=== PATIENT | female | born 1935 | race Caucasian/White ===

== ENCOUNTER 2016-08-10 07:15 | Inpatient (IN) | payer OTHER ==
[2016-07-20 12:45] VITALS: BMI 40.0
--- NOTE | 2016-07-20 13:35 | PAT Medication Instructions ---
Service Date July 20, 2016. Current Home Medication List Apixaban (Eliquis), 5 MG PO BID Calcium/Vitamin D (Caltrate 600 Plus *), 1 TAB PO BID Celecoxib (Celebrex), CAP PO BID Celecoxib (CeleBREX), 200 MG PO QAM Cholecalciferol (Vitamin D), 1,000 INTER.UNIT PO QDL Lisinopril (Zestril), 5 MG PO QAM Metoprolol Succinate (Metoprolol Succinate ER), 1 TAB PO QPM Multiple Vitamin (Multivitamins), 1 TAB PO QDL Omeprazole (Prilosec), 20 MG PO QAM Oxycodone Hcl (Oxycodone Hcl), 1 CAP PO q4-6 hours PRN for Pain Sertraline (Zoloft), 100 MG PO QAM [Levothyroxine], 100 MG PO QAM Medication Instructions For Your Scheduled Surgery Apixaban (Eliquis), 5 MG PO BID (anesthesia recommends holding three days for spinal anesthesia- please check if this is okay with necktie stitcher) Celecoxib (CeleBREX), 200 MG PO QAM (patient will check with surgeon for instructions) - Hold the following medications the morning of surgery: Multiple Vitamin (Multivitamins), 1 TAB PO QDL3 Lisinopril (Zestril), 5 MG PO QAM Cholecalciferol (Vitamin D), 1,000 INTER.UNIT PO QDL Calcium/Vitamin D (Caltrate 600 Plus *), 1 TAB PO BID - Take the following medications the morning of surgery with a sip of water: Sertraline (Zoloft), 100 MG PO QAM Levothyroxine 100 MG PO QAM Oxycodone Hcl (Oxycodone Hcl), 1 CAP PO q4-6 hours PRN for Pain (can take up to four hours prior to surgery if needed) Omeprazole (Prilosec), 20 MG PO QAM - Take the following medications as scheduled the night before surgery: Oxycodone Hcl (Oxycodone Hcl), 1 CAP PO q4-6 hours PRN for Pain Metoprolol Succinate (Metoprolol Succinate ER), 1 TAB PO QPM If you have any questions please call us at [phone] or [phone] ( Sera) or [phone]
--- NOTE | 2016-07-20 14:18 | DIAGNOSTIC IMAGING REPORT ---
CHEST 2 VIEWS ROUTINE CLINICAL HISTORY: PAT preoperative evaluation COMPARISON STUDY: 06/15/2012 FINDINGS: The bones soft tissues and hemidiaphragms are normal. The cardiomediastinal silhouette is normal. The lungs are clear. The pulmonary vasculature is normal. IMPRESSION: Negative chest. Electronically signed by: Jose Pitt M.D. 07/20/2016 2:17 PM Dictated Date/Time: 07/20/2016 2:16 PM
[2016-07-20 14:42] LABS: BASO % 0.5 %; BASO ABS # 0.03 K/uL (0-0.2); COMPLETE YES; EOS % 2.2 %; HEMATOCRIT 49.3 % (37-47); IG% 0.2 %; LYMPH ABS # 2.27 K/uL (1.2-3.4); MEAN CELL VOLUME 95.5 fL (80-100); MEAN CORPUSCULAR HEMOGLOBIN 30.4 pg (25-34); MEAN CORPUSCULAR HGB CONC 31.8 g/dl (32-36); MEAN PLATELET VOLUME 9.4 fL (7.4-10.4); MONO % 9.6 %; NEUT % 52.5 %; PLATELET COUNT 199 K/uL (130-400); RED BLOOD COUNT 5.16 M/uL (4.2-5.4); WHITE BLOOD COUNT 6.49 K/uL (4.8-10.8)
[2016-07-20 14:57] LABS: INR 1.1 (0.9-1.1); PARTIAL THROMBOPLASTIN RATIO 1.1; PROTHROMBIN TIME (PATIENT) 11.3 SECONDS (9.0-12.0)
[2016-07-20 15:01] LABS: URINE APPEARANCE CLEAR (CLEAR); URINE BILIRUBIN NEG (NEG); URINE COLOR YELLOW; URINE EPITHELIAL CELL AUTO >30 /lpf (0-5); URINE NITRITE NEG (NEG); URINE SPECIFIC GRAVITY 1.016 (1.000-1.030); UROBILINOGEN NEG (NEG); ZZUR CULT IF INDIC CLEAN CATCH NO
[2016-07-20 15:11] LABS: MANUAL MICROSCOPIC REQUIRED? NO; REVIEW REQ? NO
[2016-07-20 16:37] LABS: CALCIUM 9.4 mg/dl (8.5-10.1); CREATININE 0.85 mg/dl (0.60-1.20); POTASSIUM 4.7 mmol/L (3.5-5.1)
--- NOTE | 2016-08-06 15:49 | HISTORY & PHYSICAL EXAMINATION ---
DATE OF ADMISSION: 08/10/2016 CHIEF COMPLAINT: Left hip pain. HISTORY OF PRESENT ILLNESS: Susy is an 81-year-old female with a 1-year worsening history of left hip pain. She rates her pain at 10/10. She has pain with her daily activities. She has limited standing and walking tolerance. Pain is worse with weightbearing. The patient ambulates with a walker. She takes Celebrex. She is unable to exercise due to pain. She has failed conservative treatment and is scheduled for a left hip replacement. PAST MEDICAL HISTORY: Hypertension, AFib and anxiety. She denies heart disease, diabetes or DVT. PAST SURGICAL HISTORY: Tonsillectomy, bilateral carpal tunnel, right trigger finger, tubal ligation, right knee arthroscopy, right hip replacement, laminectomy, cataract extraction, biopsy of left breast, colonoscopy, D\T\C, lumbar fusion L3-S1, anterior cervical fusion C5-C6 and C6-C7 and left total knee replacement. SOCIAL HISTORY: The patient drinks 1 drink per week. She denies tobacco use. She lives alone in a single-story home. She is . She lives alone; however, her son lives close by. She is retired. FAMILY HISTORY: Negative for DVT. MEDICATIONS: Prilosec 20 mg daily, levothyroxine 1 daily, Celebrex 200 mg daily, lisinopril 5 mg daily, Zoloft daily, multivitamin 1 daily, calcium citrate 4 daily, glucosamine chondroitin 2 daily, vitamin D 1000 International Units daily, Eliquis 5 mg twice daily, and metoprolol 25 mg daily. ALLERGIES: None. REVIEW OF SYSTEMS: See HPI. Ten other systems reviewed, all negative. PHYSICAL EXAMINATION: VITAL SIGNS: Height 5 feet 2 inches and weight 218 pounds. BMI is 40. GENERAL: This is a well-developed and well-nourished female who is alert and oriented x3. Mood and affect are appropriate. HEENT: Normocephalic and atraumatic. Mucous membranes are moist and intact. NECK: Supple without lymphadenopathy. HEART: Irregular rate. No murmurs, rubs or gallops. LUNGS: Clear to auscultation without wheezes or rhonchi. ABDOMEN: Soft and nontender. Bowel sounds are equal and active. EXTREMITIES: No ecchymosis, redness or warmth. Thigh and calf are soft and nontender. Log roll of the hip reproduces pain in the groin. She is neurovascularly intact with +5/5 strength. X-RAY EXAMINATION: AP and lateral views show joint space narrowing and osteophyte formation. IMPRESSION: Degenerative joint disease, left hip. PLAN: The patient will be admitted for a direct anterior left total hip arthroplasty. We will plan on resuming Eliquis for DVT prophylaxis. NINA
[2016-08-10] VITALS (11 sets, daily range): BP systolic 77–176; BP diastolic 47–106; PULSE 72–132; TEMP 36.2–36.6; O2SAT 93–99; Ht 157.5 cm; Wt 98.7 kg
[~2016-08-10] VITALS: Ht 157.5 cm; Wt 98.7 kg
[~2016-08-10 07:15] MED LIST: ACETAMINOPHEN 500 MG TAB PO SCH; APIX1TAB3 PO; BUPIVACAINE 0.5 % 5 MG/1 ML PF 10ML VIAL ONE; CEFAZOLIN 2000 MG/60 ML D5W 60 ML IV SCH; CHOL100010 PO; CLB/200 PO; CLB100 PO; CLTP PO; CeleBREX 200 MG CAP PO SCH; DEXAMETHASONE 4 MG TAB PO SCH; FAMOTIDINE 20 MG TAB PO SCH; FENTANYL CITRATE INJ 50 MCG/1 ML 2 ML VIAL ONE; GABAPENTIN 300 MG CAP PO SCH; LACTATED RINGER'S 1000ML 1,000 ML IV SCH; LACTATED RINGER'S 1000ML 500 ML IV ONE; LACTATED RINGER'S 1000ML IV SCH; LISI5TAB3 PO; Levothyroxine PO; METOCLOPRAMIDE HCL 10 MG TAB PO SCH; MIDAZOLAM HCL 1 MG/ML 2ML VIAL ONE; MULTCAP42 PO; OMEP20CA9 PO; OXYC1CAP5 PO; OXYCODONE HCL 10 MG TABCR (OXYCONTIN) PO SCH; POLYMYXIN B SULFATE 100,000 UNITS in NSS 100ML IR SCH; ROPIVACAINE 5MG/ML 30 ML 150 MG, BUPIVACAINE/EPINEPHR 0.5% MPF 30 ML, KETOROLAC TROMETH... INFIL SCH; SERT-234 PO; TPRSR25 PO; VANCOMYCIN INJ 400 MG in NSS 100ML IR SCH
--- NOTE | 2016-08-10 08:30 | History & Physical Bridge Note ---
H&P Re-Evaluation Bridge Note: I have examined the patient, reviewed the History & Physical and in the interval since the performance of the History & Physical I have noted the following changes of clinical significance: No changes noted
[2016-08-10] MEDS ORDERED: ONDANSETRON INJ 2 MG/ML 2 ML VIAL IV PRN ×2 (09:00→11:15)
[2016-08-10] MEDS ORDERED: ATROPINE SULFATE 0.1 MG/ML 5ML SYR IV PRN (09:00)
[2016-08-10] MEDS ORDERED: LABETALOL HCL IV 5 MG/ML 20ML IV PRN (09:00)
[2016-08-10] MEDS ORDERED: KETOROLAC TROMETHAMINE 30 MG/ML VIAL IV. PRN (09:00)
[2016-08-10] MEDS ORDERED: ONDANSETRON INJ 2 MG/ML 2 ML VIAL ONE (09:10)
[2016-08-10] MEDS ORDERED: PROPOFOL IV EMULSION 10 MG/ML 20 ML VIAL IV ONE (09:10)
[2016-08-10] MEDS ORDERED: ROCURONIUM BROMIDE 10 MG/ML 5 ML VIAL ONE (09:10)
[2016-08-10] MEDS ORDERED: POVIDONE-IODINE OP SOLN 30 ML BTL ONE (09:11)
[2016-08-10] MEDS ORDERED: ORTHO JOINT ANESTHETIC ONE (09:11)
[2016-08-10] MEDS ORDERED: BACITRACIN 50000 UNIT VIAL ONE (09:11)
[2016-08-10] MEDS: TRANEXAMIC ACID INJ 1,000 MG in SODIUM CHLORIDE 0.9% 100ML 100 ML IV SCH ×2 (09:28→13:52)
[2016-08-10] MEDS ORDERED: FENTANYL CITRATE INJ 50 MCG/1 ML 2 ML VIAL ONE ×2 (09:57→10:21)
--- NOTE | 2016-08-10 11:02 | [facility] Post Operative Brief Note ---
Immediate Operative Summary Operative Date August 10, 2016. Pre-Operative Diagnosis Left hip degenerative joint disease Post-Operative Diagnosis Left hip degenerative joint disease MORBID OBESITY BMI 40 Procedure(s) Performed Left total hip arthroplasty, direct anterior approach Surgeon Dr. Moo Romero Dairy Husbandry Teacher Surgeon(s) Pepper Holcomb PA-C Estimated Blood Loss 75 ML Findings DJD Specimens A. Left femoral head Complication(s) None Disposition Recovery Room / PACU
--- NOTE | 2016-08-10 11:09 | DIAGNOSTIC IMAGING REPORT ---
LEFT HIP UNILATERAL 1 VIEW CLINICAL HISTORY: Hip arthroplasty COMPARISON STUDY: No previous studies for comparison. FINDINGS: There are postsurgical changes of a total left hip arthroplasty. There is no dislocation. No fractures are visualized. A single fluoroscopic spot image was acquired. 13 seconds of fluoroscopic time was utilized. IMPRESSION: Postsurgical changes of a total left hip arthroplasty. Electronically signed by: Meng Daniels M.D. 08/10/2016 11:07 AM Dictated Date/Time: 08/10/2016 11:07 AM
[2016-08-10] MEDS ORDERED: SOD PHOSPHATE/SOD BIPHOSPHATE ENEMA 132 ML BTL PR PRN (11:15)
[2016-08-10] MEDS ORDERED: DiphenhydrAMINE HCL 50 MG/ML VIAL IV PRN (11:15)
[2016-08-10] MEDS ORDERED: MoRPHine SULFATE 2 MG/ML CARP IV PRN (11:15)
[2016-08-10] MEDS ORDERED: MAGNESIUM HYDROXIDE SUSP 30 ML UDC PO PRN (11:15)
[2016-08-10] MEDS ORDERED: METOCLOPRAMIDE HCL INJ 5 MG/ML 2 ML VIAL IV PRN (11:15)
[2016-08-10] MEDS ORDERED: ALUMINUM/MAGNESIUM/SIMETH (MAALOX MAX) 30 ML UDC PO PRN (11:15)
[2016-08-10] MEDS ORDERED: OXYCODONE HCL IR 5 MG TAB (IMMEDIATE RELEASE) PO PRN (11:15)
[2016-08-10] MEDS ORDERED: BISACODYL 10 MG SUPP PR PRN (11:15)
[2016-08-10] MEDS ORDERED: ZOLPIDEM TARTRATE 5 MG TAB PO PRN (11:15)
[2016-08-10] MEDS ORDERED: HYDROmorphone INJ 1 MG/ML SYR ONE (11:42)
[2016-08-10] MEDS: HYDROmorphone INJ 2 MG/ML SYR/VIAL IV PRN ×4 (11:46→12:01)
--- NOTE | 2016-08-10 12:11 | Anesthesiology Progress Note ---
Anesthesia Post Op Note Date & Time August 10, 2016 at 12:11 Vital Signs Pain Intensity: 5 Vital Signs Past 12 Hours Date Time Temp Pulse Resp B/P Pulse Ox O2 Delivery O2 Flow Rate FiO2 08/10/16 12:03 102 14 08/10/16 12:03 100 14 100 08/10/16 12:02 117/74 08/10/16 11:58 81 21 08/10/16 11:58 83 21 100 08/10/16 11:57 128/88 08/10/16 11:53 94 14 08/10/16 11:53 76 14 100 08/10/16 11:52 90 15 08/10/16 11:52 82 15 136/87 100 08/10/16 11:47 79 14 139/99 100 08/10/16 11:47 83 14 08/10/16 11:42 94 14 08/10/16 11:42 84 14 146/95 100 08/10/16 11:37 80 14 08/10/16 11:37 77 14 151/101 100 08/10/16 11:33 147/96 08/10/16 11:32 17 08/10/16 11:32 17 08/10/16 11:32 36.2 75 22 147/96 100 Room Air 10 08/10/16 08:16 36.4 86 18 176/106 98 Room Air Notes Mental Status: alert / awake / arousable, participated in evaluation Pt Amnestic to Procedure: Yes Nausea / Vomiting: adequately controlled Pain: adequately controlled Airway Patency, RR, SpO2: stable & adequate BP & HR: stable & adequate Hydration State: stable & adequate Neuraxial Anesthesia: was administered, sensory block is resolving Anesthetic Complications: no major complications apparent
--- NOTE | 2016-08-10 14:05 | DIAGNOSTIC IMAGING REPORT ---
AP PELVIS, CROSSTABLE LATERAL LEFT HIP History: Left total hip arthroplasty. Degenerative arthritis. Postop. FINDINGS: The patient is status post a left total hip arthroplasty. The hardware is intact. No fracture or dislocation. Prior right total hip arthroplasty. A surgical drain is in place. IMPRESSION: Left total hip arthroplasty. No evidence for hardware complication. Electronically signed by: Grant Sandoval M.D. 08/10/2016 2:03 PM Dictated Date/Time: 08/10/2016 2:03 PM
[2016-08-10] MEDS: D5W AND 1/2NSS + 20MEQ KCL 1,000 ML IV SCH ×2 (14:31→23:21)
[2016-08-10] MEDS ORDERED: PNEUMOCOCCAL ADMINISTRATION CHARGE ONE (14:45)
[2016-08-10] MEDS ORDERED: PNEUMOCOCCAL POLYSACCHARIDES 25 MCG/0.5 ML VIAL/SYR IM. ONE (14:45)
[2016-08-10] MEDS: ACETAMINOPHEN 500 MG TAB PO SCH ×2 (15:28→21:04)
[2016-08-10] MEDS ORDERED: TRANEXAMIC ACID INJ 1,000 MG in SODIUM CHLORIDE 0.9% 100ML 100 ML IV SCH (17:30)
[2016-08-10] MEDS: CEFAZOLIN IV 2,000 MG in DEXTROSE 5% 50ML 50 ML IV SCH (17:47)
[2016-08-10] MEDS: KETOROLAC TROMETHAMINE 15 MG/ML VIAL IV. SCH ×2 (17:49→23:21)
[2016-08-10] MEDS: METOPROLOL SUCC 25MG EXT REL TAB PO SCH (21:00)
[2016-08-10] MEDS ORDERED: NON-FORMULARY MEDICATION (Apixaban (Eliquis) 5 MG) PO SCH (21:00)
[2016-08-10] MEDS ORDERED: ASPIRIN 81 MG ECTAB PO SCH (21:00)
[2016-08-10] MEDS: CALCIUM 600MG + VIT D 400 IU TAB PO SCH (21:04)
[2016-08-10] MEDS: SENNA 8.6 MG TAB PO SCH (21:04)
[2016-08-11] VITALS (7 sets, daily range): BP systolic 84–115; BP diastolic 54–76; PULSE 74–102; TEMP 36.3–36.6; O2SAT 91–98
[2016-08-11] MEDS: CEFAZOLIN IV 2,000 MG in DEXTROSE 5% 50ML 50 ML IV SCH (02:08)
[2016-08-11] MEDS: TRAMADOL HCL 50 MG TAB PO PRN ×4 (04:09→21:21)
[2016-08-11] MEDS: LEVOTHYROXINE 100 MCG TAB PO SCH (05:44)
[2016-08-11] MEDS: ACETAMINOPHEN 500 MG TAB PO SCH ×3 (05:44→21:24)
[2016-08-11] MEDS: KETOROLAC TROMETHAMINE 15 MG/ML VIAL IV. SCH ×4 (05:45→23:16)
[2016-08-11 06:20] LABS: BASO % 0.1 %; BASO ABS # 0.02 K/uL (0-0.2); COMPLETE YES; EOS % 0.6 %; IG% 0.4 %; LYMPH % 17.8 %; LYMPH ABS # 2.47 K/uL (1.2-3.4); MEAN CELL VOLUME 94.3 fL (80-100); MEAN CORPUSCULAR HGB CONC 32.9 g/dl (32-36); MEAN PLATELET VOLUME 9.4 fL (7.4-10.4); NEUT % 70.1 %; PLATELET COUNT 188 K/uL (130-400); RED BLOOD COUNT 4.35 M/uL (4.2-5.4); WHITE BLOOD COUNT 13.87 K/uL (4.8-10.8)
[2016-08-11 06:55] LABS: BUN/CREATININE RATIO 15.3 (10-20); CALCIUM 8.4 mg/dl (8.5-10.1); CREATININE 1.2 mg/dl (0.60-1.20)
[2016-08-11] MEDS ORDERED: NURSING VERBAL MED ORDER ONE (07:30)
--- NOTE | 2016-08-11 07:40 | Orthopedic Progress Note ---
Orthopedic Progress Note Date of Service August 11, 2016. Subjective Post OP Day: 1 Reports: feeling well, Denies: SOB, calf pain, chest pain, light headedness, nausea / vomiting Objective calves soft nontender, N/V intact, hip located, dressing C/D/I, A&O x3, toes mobile, hemovac drainage (225/100cc per shift) Date Time Temp Pulse Resp B/P Pulse Ox O2 Delivery O2 Flow Rate FiO2 08/11/16 04:03 36.5 82 16 100/68 95 Room Air 08/10/16 23:34 Room Air 08/10/16 23:15 36.3 94 18 102/67 96 Room Air 08/10/16 20:54 109 106/68 08/10/16 19:40 Room Air 08/10/16 19:38 99 82/56 08/10/16 19:30 36.5 90 16 77/47 93 Room Air 08/10/16 15:50 36.2 88 16 101/67 96 Nasal Cannula 2.0 08/10/16 14:43 36.6 91 20 87/54 97 Nasal Cannula 2.0 08/10/16 14:32 132 94/62 08/10/16 13:50 72 16 82/53 96 2.0 08/10/16 13:21 87 16 109/68 98 2.0 08/10/16 12:50 Nasal Cannula 2.0 08/10/16 12:50 99 Nasal Cannula 2.0 08/10/16 12:50 36.5 103 18 124/82 99 Nasal Cannula 2.0 08/10/16 12:37 110/82 08/10/16 12:34 89 12 96 08/10/16 12:34 88 12 08/10/16 12:32 106/71 08/10/16 12:29 91 18 99 08/10/16 12:29 91 18 08/10/16 12:27 123/63 08/10/16 12:24 115 15 124/71 100 08/10/16 12:24 107 15 08/10/16 12:24 36.4 75 16 124/71 100 Nasal Cannula 4 08/10/16 12:21 86/69 08/10/16 12:19 106 25 88/66 94 08/10/16 12:19 107 25 08/10/16 12:17 119/ 08/10/16 12:14 86 14 08/10/16 12:14 84 14 100 08/10/16 12:11 128/70 08/10/16 12:09 104 14 100 08/10/16 12:09 96 14 08/10/16 12:07 105/77 08/10/16 12:04 92 13 100 08/10/16 12:04 93 13 08/10/16 12:03 102 14 08/10/16 12:03 100 14 100 08/10/16 12:02 117/74 08/10/16 11:58 81 21 08/10/16 11:58 83 21 100 08/10/16 11:57 128/88 08/10/16 11:53 94 14 08/10/16 11:53 76 14 100 08/10/16 11:52 90 15 08/10/16 11:52 82 15 136/87 100 08/10/16 11:47 79 14 139/99 100 08/10/16 11:47 83 14 08/10/16 11:42 94 14 08/10/16 11:42 84 14 146/95 100 08/10/16 11:37 80 14 08/10/16 11:37 77 14 151/101 100 08/10/16 11:33 147/96 08/10/16 11:32 17 08/10/16 11:32 17 08/10/16 11:32 36.2 75 22 147/96 100 Room Air 10 08/10/16 08:16 36.4 86 18 176/106 98 Room Air Laboratory Results 24 Hours: Test 08/11/16 06:08 White Blood Count 13.87 K/uL Red Blood Count 4.35 M/uL Hemoglobin 13.5 g/dL Hematocrit 41.0 % Mean Corpuscular Volume 94.3 fL Mean Corpuscular Hemoglobin 31.0 pg Mean Corpuscular Hemoglobin Concent 32.9 g/dl Platelet Count 188 K/uL Mean Platelet Volume 9.4 fL Neutrophils (%) (Auto) 70.1 % Lymphocytes (%) (Auto) 17.8 % Monocytes (%) (Auto) 11.0 % Eosinophils (%) (Auto) 0.6 % Basophils (%) (Auto) 0.1 % Neutrophils # (Auto) 9.73 K/uL Lymphocytes # (Auto) 2.47 K/uL Monocytes # (Auto) 1.52 K/uL Eosinophils # (Auto) 0.08 K/uL Basophils # (Auto) 0.02 K/uL Assessment & Plan Assessment: POD#1 sp left PATRICIO Obesity Inhouse Planning Pain Management: Celebrex, PO Tylenol, Oxy IR DVT Prophylaxis: TEDs, SCDs, ASA, other (eliqus) Discharge Planning Discharge Planning: rehab hospital (PATIENT WOULD LIKE REFERRAL TO [facility]
[2016-08-11] MEDS: MULTIVITAMIN TAB PO SCH (08:43)
[2016-08-11] MEDS: SERTRALINE HCL 100 MG TAB PO SCH (08:43)
[2016-08-11] MEDS: PANTOprazole SOD 40 MG TAB PO SCH (08:43)
[2016-08-11] MEDS: CALCIUM 600MG + VIT D 400 IU TAB PO SCH ×2 (08:44→21:23)
[2016-08-11] MEDS ORDERED: LISINOPRIL 5 MG TAB PO SCH (09:00)
--- NOTE | 2016-08-11 09:43 | OPERATIVE REPORT ---
DATE OF OPERATION: 08/10/2016 PREOPERATIVE DIAGNOSES: 1. Degenerative arthritis, left hip. 2. Morbid obesity, BMI of 40. POSTOPERATIVE DIAGNOSES: Same. PROCEDURE: Left total hip replacement. SURGEON: Moo Romero M.D. REACTOR FUELING SUPERVISOR: Pepper Holcomb PA-C. ANESTHESIA: General. BLOOD LOSS: 75 mL. REPLACEMENT FLUIDS: 1900 mL crystalloid. DRAINS: Hemovac x2. CULTURES: None. COMPLICATIONS: None. COMPONENTS USED: Angelo \T\ Nephew Polar hip system: Acetabulum size 48, femur size 4 standard offset, femoral head 0 neck, 32 mm. NOTE: Pepper Holcomb PA-C was present and assisted throughout due to the complicated nature of this case. She helped with preparation and setup. She first assisted throughout and personally closed the fascial, subcutaneous and skin layers and applied the postoperative dressing. OPERATION AND FINDINGS: DESCRIPTION: Following satisfactory spinal, the patient was supine. The left leg was placed in the traction device and the right leg in the well leg fang. The left leg was prepared with ChloraPrep and draped sterilely. Following a surgical time-out, an anterior approach was performed. The approach was difficult. The patient had an extremely large subcutaneous fat layer and initially the interval between the sartorius and tensor muscles was difficult to identify. Eventually was identified but this added additional time and difficulty to the case. The circumflex femoral vessels were identified and ligated. An anterior capsulotomy was performed revealing the arthritic femoral neck and head. The femoral neck and head were trimmed and removed. The acetabular self-retraining retractor was placed. It had to be reset multiple times because of the patient's obesity. Acetabular preparation was completed and a 48 shell was impacted into an anatomic position and secured with a dome screw. Local anesthetic was placed and after irrigation, the polyethylene liner was placed. The femur was placed into position of external rotation, extension and adduction. Femoral canal was prepared up to a size 4. Intraoperative fluoroscopy with a 0 neck length head showed good fit and fill of the proximal canal and yarsanism of leg lengths using anatomic landmarks on fluoroscopy. The hip was dislocated. The trial component was removed. The final implant was placed and after a Betadine soak and irrigation, the capsule was closed with 1-0 Vicryl interrupted. A drain was then placed. The fascia was closed with 1-0 Vicryl running. The subcutaneous tissues were closed with 1 and 2-0 Vicryl and the skin with a running subcuticular stitch of 3-0 V-Loc. Dermabond and a dry dressing were applied. The patient was returned to her bed in stable condition. I attest to the content of the Intraoperative Record and any orders documented therein. Any exceptio ns are noted below.
[2016-08-11] MEDS: CHOLECALCIFEROL 1000 INTER.UNIT TAB PO SCH (12:12)
[2016-08-11 20:43] LABS: BASO % 0.3 %; BASO ABS # 0.04 K/uL (0-0.2); EOS % 2.2 %; HEMATOCRIT 40.7 % (37-47); IG% 0.2 %; LYMPH % 22.8 %; LYMPH ABS # 2.79 K/uL (1.2-3.4); MEAN CELL VOLUME 94.9 fL (80-100); MEAN PLATELET VOLUME 9.4 fL (7.4-10.4); MONO % 9.6 %; NEUT % 64.9 %; PLATELET COUNT 179 K/uL (130-400); RED BLOOD COUNT 4.29 M/uL (4.2-5.4); WHITE BLOOD COUNT 12.23 K/uL (4.8-10.8)
[2016-08-11 20:46] LABS: COMPLETE YES; MEAN CORPUSCULAR HGB CONC 32.7 g/dl (32-36)
[2016-08-11] MEDS: METOPROLOL SUCC 25MG EXT REL TAB PO SCH (21:00)
[2016-08-11] MEDS: SENNA 8.6 MG TAB PO SCH (21:22)
[2016-08-11] MEDS: APIXABAN 2.5 MG TAB PO SCH (21:23)
[2016-08-11 21:27] LABS: ALB/GLOB RATIO 1.1 (0.9-2); BUN/CREATININE RATIO 18.6 (10-20); CALCIUM 8.5 mg/dl (8.5-10.1); CREATININE 1.4 mg/dl (0.60-1.20); POTASSIUM 4.6 mmol/L (3.5-5.1)
[2016-08-12] VITALS (9 sets, daily range): BP systolic 86–116; BP diastolic 60–78; PULSE 89–119; TEMP 36.4–36.7; O2SAT 96
[2016-08-12] MEDS: KETOROLAC TROMETHAMINE 15 MG/ML VIAL IV. SCH (06:14)
[2016-08-12] MEDS: ACETAMINOPHEN 500 MG TAB PO SCH ×3 (06:14→21:32)
[2016-08-12] MEDS: LEVOTHYROXINE 100 MCG TAB PO SCH (06:14)
--- NOTE | 2016-08-12 07:40 | Orthopedic Progress Note ---
Orthopedic Progress Note Date of Service Aug 12, 2016. Subjective Post OP Day: 2 Reports: feeling well, Denies: chest pain, SOB, nausea / vomiting, light headedness, calf pain Objective calves soft nontender, N/V intact, dressing C/D/I, A&O x3, toes mobile Date Time Temp Pulse Resp B/P (MAP) Pulse Ox O2 Delivery O2 Flow Rate FiO2 08/12/16 07:29 96 Room Air 08/12/16 06:21 36.4 89 16 111/74 (86) 96 Room Air 08/11/16 23:20 Room Air 08/11/16 23:10 36.3 83 18 115/76 (89) 95 Room Air 08/11/16 19:13 36.6 85 17 84/54 (64) 91 Room Air 08/11/16 16:30 Room Air 08/11/16 15:07 36.5 82 16 86/57 (67) 96 Room Air 08/11/16 12:05 36.5 102 18 106/66 (79) 98 Room Air Laboratory Results 24 Hours: Test 08/11/16 20:36 White Blood Count 12.23 K/uL Red Blood Count 4.29 M/uL Hemoglobin 13.3 g/dL Hematocrit 40.7 % Mean Corpuscular Volume 94.9 fL Mean Corpuscular Hemoglobin 31.0 pg Mean Corpuscular Hemoglobin Concent 32.7 g/dl Platelet Count 179 K/uL Mean Platelet Volume 9.4 fL Neutrophils (%) (Auto) 64.9 % Lymphocytes (%) (Auto) 22.8 % Monocytes (%) (Auto) 9.6 % Eosinophils (%) (Auto) 2.2 % Basophils (%) (Auto) 0.3 % Neutrophils # (Auto) 7.92 K/uL Lymphocytes # (Auto) 2.79 K/uL Monocytes # (Auto) 1.18 K/uL Eosinophils # (Auto) 0.27 K/uL Basophils # (Auto) 0.04 K/uL Assessment & Plan Assessment: POD#2 sp left PATRICIO Obesity Inhouse Planning Pain Management: Celebrex, PO Tylenol, Oxy IR DVT Prophylaxis: TEDs, SCDs, ASA, other (eliqus) Discharge Planning Discharge Planning: rehab hospital (transfer today if accepted)
[2016-08-12] MEDS ORDERED: OXYC1CAP5 PO (07:42)
[2016-08-12] MEDS ORDERED: ACET-1138 PO (07:42)
[2016-08-12] MEDS ORDERED: ONDA8TAB6 PO (07:42)
[2016-08-12] MEDS ORDERED: SNK PO (07:42)
--- NOTE | 2016-08-12 07:44 | Discharge Instructions ---
Discharge Instructions Date of Service Aug 12, 2016. Admission Reason for Admission: Left Hip Degenerative Arthritis Discharge Discharge Diagnosis / Problem: sp left rajni, DIRECT ANTERIOR Discharge Goals Goal(s): Decrease discomfort, Improve function, Increase independence Activity Recommendations Activity Level: Assistance Required Therapies: Physical Therapy, Weight Bearing Status, Occupational Therapy . Additional Information Patient informed of condition: Yes Advance Directives: Yes DNR: No Level of Care: Acute Rehab Communicable Disease: No Prognosis: Stable Instructions / Follow-Up Instructions / Follow-Up ACTIVITY RECOMMENDATIONS: SELF CARE INSTRUCTIONS AFTER TOTAL HIP REPLACEMENT : Direct Anterior Approach Until the incision and soft tissues around your hip have healed, there is a possibility that the hip prosthesis could dislocate. A. Hip flexion ( Up & Down out of chair or steps ) may be difficult. This is normal. B. Numbness in front of the thigh is also normal for a few weeks. C. Use hand rails when walking on stairs. D. Wear low heeled shoes with non-slip soles. E. Be sure that your floors are free of things that could trip you - throw rugs , electrical cords, small objects. Avoid wet and waxed floors, especially with crutches and canes. F. Try to walk several times a day with rest periods between. G. Continue with all the exercises taught to you in the hospital. Again, make walking a part of your daily routine. SPECIAL CARE INSTRUCTIONS: VERY IMPORTANT TO READ AND REVIEW A. You may still be at risk for phlebitis and blood clots. 1. Wear surgical stockings (ADAN hose) for 2 weeks after surgery to improve circulation and reduce swelling. 2. Take Aspirin 81mg twice daily for 4 weeks or as directed by your doctor. This is your blood thinner. 3. High risk patients may be prescribed a stronger blood thinner if necessary. 4. If you are on Coumadin normally, your family doctor/mental health program manager should monitor your blood work. Expect a phone call the day of or the day after bloodwork is drawn to adjust your dosage. B. You must take antibiotics before having dental work, bladder, bowel and other surgery. Your doctor will provide you with a permanent card to carry describing precautions. C. Call [facility] if you have a fever, redness or swelling around the incision, cloudy drainage from incision, or sudden increase in pain in your hip, not relieved by your regular pain medication. D. Please call the office at if you have any concerns or questions about your operation or recovery. * YOU MAY SHOWER, NO TUB BATHS UNTIL CLEARED BY YOUR DOCTOR. - Keep an extra close eye on the top portion of your incision. Be sure to keep clean & dry. * WEAR ADAN HOSE 20 HOURS PER DAY FOR 2 WEEKS. * YOU MAY PROGRESS FROM A WALKER, TO A CANE, TO INDEPENDENT AT YOUR OWN PACE. * MOST PATIENTS WILL HAVE HOME NURSING FOR THERAPY. IF YOU DECIDE TO DO OUTPATIENT PHYSICAL THERAPY, PLEASE SCHEDULE THIS 3 TIMES PER WEEK. * DERMABOND Prineo- This is a mesh tape dressing that is covered with glue. It should remain in place until the incision is properly healed, usually 10-14 days. This dressing is designed to naturally slough off. You may trim the excess mesh tape as it peels off. Incision may be briefly wet in a shower. Dry immediately by blotting with a clean, dry towel. Do not bath or swim until instructed by your doctor. Do not scratch, rub, or pick at the dressing. Do not apply any topical ointments or lotions until dressing is completely removed and/or instructed by your doctor. There may be a small piece of suture material at one end of your incision. Do not pull or trim this. If it is bothersome or catching on clothing, you may cover it with a band-aid. FOLLOW UP VISIT: If appointment is not already scheduled: Please call [facility] to make a follow-up appointment for 2 weeks after your surgery at . Current Hospital Diet Patient's current hospital diet: Regular Diet Discharge Diet Recommended Diet: Regular Diet Procedures Procedures Performed: Left total hip arthroplasty, direct anterior approach Pending Studies Studies pending at discharge: no Medical Emergencies . Who to Call and When: Medical Emergencies: If at any time you feel your situation is an emergency, please call 911 immediately. . Non-Emergent Contact Non-Emergency issues call your: Surgeon . . "Provider Documentation" section prepared by Pepper Holcomb. . Core Measure Problem Core Measures: None [place] Drug Monitoring Program Search Results: patient reviewed within database, no issues identified
[2016-08-12] MEDS ORDERED: SODIUM CHLORIDE 0.9% 1000ML 1,000 ML IV SCH (08:30)
[2016-08-12] MEDS ORDERED: NURSING VERBAL MED ORDER ONE (08:30)
--- NOTE | 2016-08-12 08:49 | Medical Consult ---
Consultation Date of Consultation: Aug 12, 2016. Attending Physician: Moo Romero M.D. Reason for Consultation: Hypotension History of Present Illness Patient is a pleasant 81 year old female who is s/p left total hip arthroplasty , direct anterior approach. She has had labile blood pressure ranging from the 80s systolic up to 120 systolic. Hospitalist was consulted for management of hypotension. At the present time the patient currently denies any symptoms. She has started participating in rehabilitation. She denies chest pain, shortness of breath, palpitations, wheezing, orthopnea, syncope or lower extremity edema. Her other medical history includes HTN, Atrial Fibrillation and Anxiety. Past Medical/Surgical History HTN Atrial Fibrillation Anxiety Depression Hypothyroidism Social History Smoking Status: Never Smoker Smokeless Tobacco Use: No Alcohol Use: none Drug Use: none Housing Status: lives with family Allergies Coded Allergies: No Known Allergies (Verified , 07/20/16) Home Medications Reported Home Medications Medications Dose Route/Sig Max Daily Dose Days Date Category Dose Instructions Zofran (Ondansetron HCl) 8 Mg Tab 8 Mg PO Q8 PRN 08/12/16 Rx Senna Lax (Senna) 8.6 Mg Tab 17.2 Mg PO HS 14 08/12/16 Rx Tylenol Extra Strength (Acetaminophen) 500 Mg Tab 1,000 Mg PO Q8 30 08/12/16 Rx Oxycodone Hcl 5 Mg Cap 1-2 Cap PO Q4-6 HOURS PRN 08/12/16 Rx Metoprolol Succinate ER (Metoprolol Succinate) 25 Mg Tabcr 1 Tab PO QPM 07/20/16 Reported per pt med list, name of drug reads : metoprolol ER pharmacy called and verified with pharmacist that drug is a succinate Eliquis (Apixaban) 5 Mg Tab 5 Mg PO BID 07/20/16 Reported CeleBREX (Celecoxib) 200 Mg Cap 200 Mg PO QAM 07/20/16 Reported Zoloft (Sertraline HCl) 100 Mg Tab 100 Mg PO QAM 07/20/16 Reported [Levothyroxine] 100 Mg PO QAM 07/20/16 Reported pt med list reads 100 mg and patient reports this dose Prilosec (Omeprazole) 20 Mg Cap 20 Mg PO QAM 06/15/12 Reported Multivitamins (Multiple Vitamin) 1 Cap Cap 1 Tab PO QDL 06/15/12 Reported Caltrate 600 Plus * (Calcium/Vitamin D) Tab 1 Tab PO BID 09/30/09 Reported Vitamin D (Cholecalciferol) 1,000 Inter.unit Tab 1,000 Inter.unit PO QDL 06/17/09 Reported Zestril (Lisinopril) 5 Mg Tab 5 Mg PO QAM 06/17/09 Reported Current Inpatient Medications Current Inpatient Medications Medications (Trade) Dose Ordered Sig/Wendy Route Start Time Stop Time Status Last Admin Dose Admin Ketorolac Tromethamine (Toradol Inj) 15 mg Q6 IV. 08/10/16 18:00 08/12/16 17:59 08/12/16 06:14 15 MG Celecoxib (CeleBREX CAP) 200 mg QD@08 PO 08/13/16 08:00 09/12/16 07:59 Oxycodone HCl (Roxicodone Immediate Rel Tab) 1 TABLET FOR PAIN RATING... Q4H PRN PO 08/10/16 11:15 08/24/16 11:14 Morphine Sulfate (MoRPHine SULFATE INJ) 2 mg Q2HWA PRN IV 08/10/16 11:15 08/24/16 11:14 Acetaminophen (Tylenol Tab) 1,000 mg Q8 PO 08/10/16 14:00 09/09/16 13:59 08/12/16 06:14 1,000 MG Magnesium Hydroxide (Milk Of Magnesia Susp) 30 ml Q6H PRN PO 08/10/16 11:15 09/09/16 11:14 Bisacodyl (Dulcolax Supp) 10 mg DAILY PRN ME 08/10/16 11:15 09/09/16 11:14 Sodium Biphosphate/ Sodium Phosphate (Fleet Enema) 132 ml DAILY PRN ME 08/10/16 11:15 09/09/16 11:14 Senna (Senokot Tab) 17.2 mg HS PO 08/10/16 21:00 09/09/16 20:59 08/11/16 21:22 17.2 MG Diphenhydramine HCl (Benadryl Cap) 25 mg Q8H PRN PO 08/10/16 11:15 09/09/16 11:14 Diphenhydramine HCl (Benadryl Inj) 25 mg Q8H PRN IV 08/10/16 11:15 09/09/16 11:14 Al Hydrox/Mg Hydrox/Simethicone (Maalox Max Susp) 15 ml Q4H PRN PO 08/10/16 11:15 09/09/16 11:14 Zolpidem Tartrate (Ambien Tab) 5 mg HSZ PRN PO 08/10/16 11:15 09/09/16 11:14 Multivitamins (Multivitamin Tab) 1 tab QAM PO 08/11/16 09:00 09/10/16 08:59 08/11/16 08:43 1 TAB Ondansetron HCl (Zofran Inj) 4 mg Q6H PRN IV 08/10/16 11:15 09/09/16 11:14 Metoclopramide HCl (Reglan Inj) 10 mg Q6H PRN IV 08/10/16 11:15 09/09/16 11:14 Pantoprazole Sodium (Protonix Tab) 40 mg QAM PO 08/11/16 09:00 09/10/16 08:59 08/11/16 08:43 40 MG Tramadol HCl (Ultram Tab) 1 TABLET FOR PAIN RATING... Q4H PRN PO 08/10/16 11:15 09/09/16 11:14 08/11/16 21:21 100 MG Calcium/Vitamin D (Caltrate Plus Tab) 1 tab BID PO 08/10/16 21:00 09/09/16 20:59 08/11/16 21:23 1 TAB Cholecalciferol (Vitamin D Tab) 1,000 inter.unit QDL PO 08/11/16 11:00 09/10/16 10:59 08/11/16 12:12 1,000 INTER.UNIT Lisinopril (Zestril Tab) 5 mg QAM PO 08/11/16 09:00 09/10/16 08:59 08/11/16 08:44 5 MG Metoprolol Succinate (Toprol Xl Tab) 25 mg QPM PO 08/10/16 21:00 09/09/16 20:59 Sertraline HCl (Zoloft Tab) 100 mg QAM PO 08/11/16 09:00 09/10/16 08:59 08/11/16 08:43 100 MG Levothyroxine Sodium (Synthroid Tab) 100 mcg DAILYBB PO 08/11/16 06:00 09/10/16 06:59 08/12/16 06:14 100 MCG Apixaban (Eliquis Tab) 5 mg BID PO 08/11/16 21:00 09/10/16 20:59 08/11/16 21:23 5 MG Sodium Chloride 1,000 ml @ 250 mls/hr Q4H IV 08/12/16 08:30 08/12/16 12:29 Review of Systems Constitutional: No fever, No chills Eyes: No eye pain, No redness, No discharge ENT: No nasal symptoms, No sore throat, No tinnitus Respiratory: No cough, No shortness of breath, No dyspnea at rest Cardiovascular: No edema, No palpitations Abdomen: No pain, No nausea, No vomiting, No diarrhea, No constipation Musculoskeletal: + joint pain (left hip, s/p replacement) Genitourinary - Female: No urinary urgency Neurologic: + weakness, + numbness/tingling, + vertigo Hematologic / Lymphatic: + abnormal bleeding/bruising, + swollen lymph nodes, + night sweats Integumentary: + rash, + new/changing skin lesions, + color change Physical Exam Date Time Temp Pulse Resp B/P (MAP) Pulse Ox O2 Delivery O2 Flow Rate FiO2 08/12/16 07:51 96 Room Air 08/12/16 07:43 36.5 94 16 86/64 (71) 96 Room Air 08/12/16 07:29 96 Room Air 08/12/16 06:21 36.4 89 16 111/74 (86) 96 Room Air 08/11/16 23:20 Room Air 08/11/16 23:10 36.3 83 18 115/76 (89) 95 Room Air 08/11/16 19:13 36.6 85 17 84/54 (64) 91 Room Air 08/11/16 16:30 Room Air 08/11/16 15:07 36.5 82 16 86/57 (67) 96 Room Air 08/11/16 12:05 36.5 102 18 106/66 (79) 98 Room Air General Appearance: WD/WN, no apparent distress, + obese Head: normocephalic, atraumatic Eyes: normal inspection, PERRL, EOMI ENT: hearing grossly normal, pharynx normal Neck: supple, no adenopathy, no JVD Respiratory/Chest: lungs clear, no respiratory distress Cardiovascular: no gallop, no murmur, + irregularly irregular (afib rate controlled) Abdomen/GI: non tender, soft, no organomegaly Back: normal inspection, no CVA tenderness, no muscle spasm Extremities/Musculoskelatal: no calf tenderness, no pedal edema, + pertinent finding (bandaged left hip, appropriately tender with limited ROM) Neurologic/Psych: alert, normal mood/affect, oriented x 3 Skin: normal color, warm/dry, no rash Lymphatic: no adenopathy Laboratory Results Last 24 Hours Test 08/11/16 20:36 White Blood Count 12.23 K/uL Red Blood Count 4.29 M/uL Hemoglobin 13.3 g/dL Hematocrit 40.7 % Mean Corpuscular Volume 94.9 fL Mean Corpuscular Hemoglobin 31.0 pg Mean Corpuscular Hemoglobin Concent 32.7 g/dl Platelet Count 179 K/uL Mean Platelet Volume 9.4 fL Neutrophils (%) (Auto) 64.9 % Lymphocytes (%) (Auto) 22.8 % Monocytes (%) (Auto) 9.6 % Eosinophils (%) (Auto) 2.2 % Basophils (%) (Auto) 0.3 % Neutrophils # (Auto) 7.92 K/uL Lymphocytes # (Auto) 2.79 K/uL Monocytes # (Auto) 1.18 K/uL Eosinophils # (Auto) 0.27 K/uL Basophils # (Auto) 0.04 K/uL RDW Standard Deviation 49.8 fL RDW Coefficient of Variation 14.4 % Immature Granulocyte % (Auto) 0.2 % Immature Granulocyte # (Auto) 0.03 K/uL Sodium Level 137 mmol/L Potassium Level 4.6 mmol/L Chloride Level 105 mmol/L Carbon Dioxide Level 24 mmol/L Anion Gap 8.0 mmol/L Blood Urea Nitrogen 26 mg/dl Creatinine 1.40 mg/dl Est Creatinine Clear Calc Drug Dose 34.0 ml/min Estimated GFR () 40.5 Estimated GFR (Non- 34.9 BUN/Creatinine Ratio 18.6 Random Glucose 101 mg/dl Calcium Level 8.5 mg/dl Magnesium Level 2.0 mg/dl Total Bilirubin 0.5 mg/dl Aspartate Amino Transf (AST/SGOT) 29 U/L Alanine Aminotransferase (ALT/SGPT) 15 U/L Alkaline Phosphatase 74 U/L Troponin I 0.023 ng/ml Total Protein 5.6 gm/dl Albumin 2.9 gm/dl Globulin 2.7 gm/dl Albumin/Globulin Ratio 1.1 Assessment & Plan 81 year old female s/p total left hip arthroplasty. Review of labs this morning also notes ELISE; possible etiologies include hypotension, anesthetic, medication. Our recommendations are as follows: Hypotension - Does have labile BP as noted on vitals - Check orthostatics with routine vital signs - Would hold Lisinopril at this stage, especially given ELISE - Would recommend 1 L bolus over 4 hours Acute Kidney Injury - Cr. 1.4 - Baseline 1.0 - Hold Lisinopril - Hold Celebrex - Rehydrate as above - Reckeck BMP tomorrow Atrial Fibrillation - Recommend continuing Metoprolol for rate control - Re-start anticoagulation at discretion of primary team Hypothyroidism - Continue Levothyroxine S/P left hip arthroplasty - Per primary team DVT prophylaxis - Re-start anticoagulation at discretion of primary team Disposition - We will continue to follow, need to see a trend towards improvement in renal function before patient can be discharged Reviewed: Pt Seen/Exam by Me History sitting comfortably in chair denies any concerns Constitutional: denies: fever Respiratory: negative: short of breath Cardiovascular: denies chest pain Gastrointestinal/Abdominal: negative: abdominal pain General Appearance: no apparent distress Respiratory: lungs clear, no respiratory distress Cardiovascular: regular rate, rhythm Gastrointestinal: normal bowel sounds, non tender, soft Neurologic/Psychiatric: alert, oriented x 3 Skin Characteristics: warm/dry Assessment/Plan I have reviewed the medical record and performed a history and physical examination of this patient today. I have discussed the case with Dr. Mckeon. The above note reflects my findings, conclusions, and recommendations.
[2016-08-12] MEDS: CALCIUM 600MG + VIT D 400 IU TAB PO SCH ×2 (09:08→21:31)
[2016-08-12] MEDS: APIXABAN 2.5 MG TAB PO SCH ×2 (09:08→21:31)
[2016-08-12] MEDS: PANTOprazole SOD 40 MG TAB PO SCH (09:08)
[2016-08-12] MEDS: SERTRALINE HCL 100 MG TAB PO SCH (09:09)
[2016-08-12] MEDS: MULTIVITAMIN TAB PO SCH (09:09)
[2016-08-12] MEDS: TRAMADOL HCL 50 MG TAB PO PRN ×2 (09:12→23:50)
[2016-08-12] MEDS: CHOLECALCIFEROL 1000 INTER.UNIT TAB PO SCH (13:28)
[2016-08-12] MEDS: SENNA 8.6 MG TAB PO SCH (21:00)
[2016-08-12] MEDS: METOPROLOL SUCC 25MG EXT REL TAB PO SCH (21:00)
[2016-08-13] VITALS (7 sets, daily range): BP systolic 108–139; BP diastolic 72–82; PULSE 93–113; TEMP 36.5–36.8; O2SAT 98–100
[2016-08-13] MEDS: LEVOTHYROXINE 100 MCG TAB PO SCH (05:53)
[2016-08-13] MEDS: ACETAMINOPHEN 500 MG TAB PO SCH (05:54)
[2016-08-13 06:36] LABS: HEMATOCRIT 40.3 % (37-47); MEAN CELL VOLUME 95.3 fL (80-100); MEAN CORPUSCULAR HGB CONC 32.5 g/dl (32-36); MEAN PLATELET VOLUME 9.2 fL (7.4-10.4); PLATELET COUNT 166 K/uL (130-400); RED BLOOD COUNT 4.23 M/uL (4.2-5.4); WHITE BLOOD COUNT 10.28 K/uL (4.8-10.8)
[2016-08-13 07:08] LABS: BUN/CREATININE RATIO 17.3 (10-20); CALCIUM 8.7 mg/dl (8.5-10.1); CREATININE 0.93 mg/dl (0.60-1.20)
[2016-08-13] MEDS ORDERED: CeleBREX 200 MG CAP PO SCH (08:00)
--- NOTE | 2016-08-13 08:01 | Orthopedic Progress Note ---
Orthopedic Progress Note Date of Service Aug 13, 2016. Subjective Post OP Day: 3 Reports: feeling well, Denies: chest pain, SOB, nausea / vomiting, light headedness, calf pain Additional Notes: PATIENT DID NOT MAKE IT TO PT YESTERDAY DUE TO SEVERE PAIN. SHE IS FEELING MUCH BETTER THIS AM. NO ACCEPTED AT FACILITY YET. Objective calves soft nontender, N/V intact, hip located, incision C/D/I, A&O x3, toes mobile Date Time Temp Pulse Resp B/P (MAP) Pulse Ox O2 Delivery O2 Flow Rate FiO2 08/13/16 07:21 36.6 93 20 139/82 (101) 100 Room Air 08/13/16 07:15 100 Room Air 08/13/16 06:07 113 134/73 (93) 08/13/16 06:04 36.5 97 16 108/72 (84) 98 Room Air 08/13/16 06:03 36.8 100 14 136/81 (99) 99 Room Air 08/13/16 05:56 99 98 Room Air 08/12/16 23:21 36.6 102 114/70 (85) 119 98/60 (73) 101/66 (78) 08/12/16 23:15 Room Air 08/12/16 18:30 101/62 (75) 92/64 (73) 104/66 (79) 08/12/16 15:54 100/64 (76) 08/12/16 15:45 Room Air 08/12/16 15:15 36.7 92 18 89/60 (70) 96 Room Air 08/12/16 12:12 116/75 (89) 112/78 (89) 106/72 (83) Laboratory Results 24 Hours: Test 08/13/16 06:28 Hematocrit 40.3 % Hemoglobin 13.1 g/dL Assessment & Plan Assessment: POD#3 sp left PATRICIO Obesity Plan: WILL ATTEMPT PT TODAY AND HOPEFULLY ACCEPTED AT A REHAB. Inhouse Planning Pain Management: Celebrex, PO Tylenol, Oxy IR DVT Prophylaxis: TEDs, SCDs, ASA, other (eliqus) Discharge Planning Discharge Planning: rehab hospital (transfer today if accepted)
[2016-08-13] MEDS: MULTIVITAMIN TAB PO SCH (08:45)
[2016-08-13] MEDS: CALCIUM 600MG + VIT D 400 IU TAB PO SCH (08:45)
[2016-08-13] MEDS: APIXABAN 2.5 MG TAB PO SCH (08:45)
[2016-08-13] MEDS: SERTRALINE HCL 100 MG TAB PO SCH (08:46)
[2016-08-13] MEDS: PANTOprazole SOD 40 MG TAB PO SCH (08:46)
[2016-08-13] MEDS: TRAMADOL HCL 50 MG TAB PO PRN (11:57)
--- NOTE | 2016-08-13 11:57 | Medical Consult ---
Consultation Date of Consultation: Aug 13, 2016. Attending Physician: Moo Romero M.D. Reason for Consultation: Hypotension History of Present Illness Doing well at this time No issues overnight BPs have been stable Patient feeling well today Social History Smoking Status: Never Smoker Smokeless Tobacco Use: No Alcohol Use: none Drug Use: none Housing Status: lives with family Allergies Coded Allergies: No Known Allergies (Verified , 07/20/16) Current Inpatient Medications Current Inpatient Medications Medications (Trade) Dose Ordered Sig/Wendy Route Start Time Stop Time Status Last Admin Dose Admin Celecoxib (CeleBREX CAP) 200 mg QD@08 PO 08/13/16 08:00 09/12/16 07:59 Future Hold Oxycodone HCl (Roxicodone Immediate Rel Tab) 1 TABLET FOR PAIN RATING... Q4H PRN PO 08/10/16 11:15 08/24/16 11:14 Morphine Sulfate (MoRPHine SULFATE INJ) 2 mg Q2HWA PRN IV 08/10/16 11:15 08/24/16 11:14 08/12/16 10:30 2 MG Acetaminophen (Tylenol Tab) 1,000 mg Q8 PO 08/10/16 14:00 09/09/16 13:59 08/13/16 05:54 1,000 MG Magnesium Hydroxide (Milk Of Magnesia Susp) 30 ml Q6H PRN PO 08/10/16 11:15 09/09/16 11:14 Bisacodyl (Dulcolax Supp) 10 mg DAILY PRN [place] 08/10/16 11:15 09/09/16 11:14 Sodium Biphosphate/ Sodium Phosphate (Fleet Enema) 132 ml DAILY PRN [place] 08/10/16 11:15 09/09/16 11:14 Senna (Senokot Tab) 17.2 mg HS PO 08/10/16 21:00 09/09/16 20:59 08/11/16 21:22 17.2 MG Diphenhydramine HCl (Benadryl Cap) 25 mg Q8H PRN PO 08/10/16 11:15 09/09/16 11:14 Diphenhydramine HCl (Benadryl Inj) 25 mg Q8H PRN IV 08/10/16 11:15 09/09/16 11:14 Al Hydrox/Mg Hydrox/Simethicone (Maalox Max Susp) 15 ml Q4H PRN PO 08/10/16 11:15 09/09/16 11:14 Zolpidem Tartrate (Ambien Tab) 5 mg HSZ PRN PO 08/10/16 11:15 09/09/16 11:14 Multivitamins (Multivitamin Tab) 1 tab QAM PO 08/11/16 09:00 09/10/16 08:59 08/13/16 08:45 1 TAB Ondansetron HCl (Zofran Inj) 4 mg Q6H PRN IV 08/10/16 11:15 09/09/16 11:14 Metoclopramide HCl (Reglan Inj) 10 mg Q6H PRN IV 08/10/16 11:15 09/09/16 11:14 Pantoprazole Sodium (Protonix Tab) 40 mg QAM PO 08/11/16 09:00 09/10/16 08:59 08/13/16 08:46 40 MG Tramadol HCl (Ultram Tab) 1 TABLET FOR PAIN RATING... Q4H PRN PO 08/10/16 11:15 09/09/16 11:14 08/12/16 23:50 50 MG Calcium/Vitamin D (Caltrate Plus Tab) 1 tab BID PO 08/10/16 21:00 09/09/16 20:59 08/13/16 08:45 1 TAB Cholecalciferol (Vitamin D Tab) 1,000 inter.unit QDL PO 08/11/16 11:00 09/10/16 10:59 08/12/16 13:28 1,000 INTER.UNIT Lisinopril (Zestril Tab) 5 mg QAM PO 08/11/16 09:00 09/10/16 08:59 Future Hold 08/11/16 08:44 5 MG Metoprolol Succinate (Toprol Xl Tab) 25 mg QPM PO 08/10/16 21:00 09/09/16 20:59 Sertraline HCl (Zoloft Tab) 100 mg QAM PO 08/11/16 09:00 09/10/16 08:59 08/13/16 08:46 100 MG Levothyroxine Sodium (Synthroid Tab) 100 mcg DAILYBB PO 08/11/16 06:00 09/10/16 06:59 08/13/16 05:53 100 MCG Apixaban (Eliquis Tab) 5 mg BID PO 08/11/16 21:00 09/10/16 20:59 08/13/16 08:45 5 MG Review of Systems A 10 point review of systems was negative unless stated above. Physical Exam Date Time Temp Pulse Resp B/P (MAP) Pulse Ox O2 Delivery O2 Flow Rate FiO2 08/13/16 11:00 36.6 93 20 100 Nasal Cannula 08/13/16 07:21 36.6 93 20 139/82 (101) 100 Room Air 08/13/16 07:15 100 Room Air 08/13/16 06:07 113 134/73 (93) 08/13/16 06:04 36.5 97 16 108/72 (84) 98 Room Air 08/13/16 06:03 36.8 100 14 136/81 (99) 99 Room Air 08/13/16 05:56 99 98 Room Air 08/12/16 23:21 36.6 102 114/70 (85) 119 98/60 (73) 101/66 (78) 08/12/16 23:15 Room Air 08/12/16 18:30 101/62 (75) 92/64 (73) 104/66 (79) 08/12/16 15:54 100/64 (76) 08/12/16 15:45 Room Air 08/12/16 15:15 36.7 92 18 89/60 (70) 96 Room Air 08/12/16 12:12 116/75 (89) 112/78 (89) 106/72 (83) General Appearance: WD/WN, no apparent distress Head: normocephalic, atraumatic Eyes: normal inspection, EOMI ENT: hearing grossly normal, pharynx normal Neck: supple, no adenopathy, no JVD Respiratory/Chest: lungs clear, no respiratory distress Cardiovascular: no gallop, no murmur, + tachycardia (borderline) Abdomen/GI: normal bowel sounds, non tender, soft Genitourinary - Female: normal pelvic exam, uterus normal shape and size Back: no CVA tenderness, no muscle spasm Extremities/Musculoskelatal: no calf tenderness, no pedal edema, + pertinent finding (left hip pain, appropriately after surgery) Neurologic/Psych: alert, normal mood/affect, oriented x 3 Skin: normal color, warm/dry, no rash Lymphatic: no adenopathy Laboratory Results Last 24 Hours Test 08/13/16 06:28 White Blood Count 10.28 K/uL Red Blood Count 4.23 M/uL Hemoglobin 13.1 g/dL Hematocrit 40.3 % Mean Corpuscular Volume 95.3 fL Mean Corpuscular Hemoglobin 31.0 pg Mean Corpuscular Hemoglobin Concent 32.5 g/dl RDW Standard Deviation 49.9 fL RDW Coefficient of Variation 14.4 % Platelet Count 166 K/uL Mean Platelet Volume 9.2 fL Sodium Level 142 mmol/L Potassium Level 4.0 mmol/L Chloride Level 109 mmol/L Carbon Dioxide Level 27 mmol/L Anion Gap 6.0 mmol/L Blood Urea Nitrogen 16 mg/dl Creatinine 0.93 mg/dl Est Creatinine Clear Calc Drug Dose 51.2 ml/min Estimated GFR () 66.3 Estimated GFR (Non- 57.2 BUN/Creatinine Ratio 17.3 Random Glucose 84 mg/dl Calcium Level 8.7 mg/dl Assessment & Plan 81 year old female s/p total left hip arthroplasty. Noted to have hypotension with ELISE. Medical team consulted for management Our recommendations are as follows: Hypotension - BPs stable this morning, 130s systolic; patient denies any ssx of hypotension - Safe to re-start Lisinopril at discharge Acute Kidney Injury - Cr. 1.4 yesterday, resolved to 0.93 - Baseline 1.0 - Can resume Lisinopril at discharge - Recommend Tylenol rather than NSAIDs at discharge Atrial Fibrillation - Recommend continuing Metoprolol for rate control - Borderline tachycardia continue likely 2/2 pain; manage pain per primary team - Anticoagulation at discharge, per primary team Hypothyroidism - Continue Levothyroxine S/P left hip arthroplasty - Per primary team DVT prophylaxis - Re-start anticoagulation at discretion of primary team Disposition - From our standpoint patient's ELISE is resolved and BP are not concerning. - We will sign off at this point at defer disposition to primary team Reviewed: Pt Seen/Exam by Me History denies any complains Constitutional: denies: fever Respiratory: negative: short of breath Cardiovascular: denies chest pain General Appearance: no apparent distress Respiratory: lungs clear, no respiratory distress Cardiovascular: irregularly irregular Neurologic/Psychiatric: alert, oriented x 3 Assessment/Plan I have reviewed the medical record and performed a history and physical examination of this patient today. I have discussed the case with Dr. Mckeon. The above note reflects my findings, conclusions, and recommendations.
[2016-08-13] MEDS: CHOLECALCIFEROL 1000 INTER.UNIT TAB PO SCH (12:30)
[2016-08-13] MEDS ORDERED: PROMETHAZINE HCL 25 MG TAB PO ONE (12:30)
--- NOTE | 2016-08-23 15:16 | DISCHARGE SUMMARY ---
DISCHARGE DIAGNOSIS: Degenerative joint disease, left knee. SECONDARY DIAGNOSES: Hypertension, atrial fibrillation. CONSULTATIONS: Dr. Dickson, Dr. Zepeda and Dr. Mckeon. COMPLICATIONS: None. PROCEDURE: The patient underwent a left total hip arthroplasty with Dr. Romero on 08/10/2016. BRIEF HISTORY: Please see previously dictated history and physical. HOSPITAL SUMMARY: The patient was admitted on the above day for the above procedure. Procedure went without complication. Postop day #1, the patient was feeling well without complaints. She denied chest pain or shortness of breath. Vital signs were stable. She was afebrile. Dressing was clean, dry and intact. She was neurovascularly intact. Calves were soft and nontender. Hemovac drained 225 then 100 mL per shift. Hemoglobin was 13.5. The patient began physical therapy per protocol. She was requesting referral to [facility] [place]. Postop day #2, the patient continued to progress. She had no complaints. Vital signs were stable. She was afebrile. Dressing was clean, dry and intact. She was neurovascularly intact. Calves were soft and nontender. The patient's hemoglobin was 13.3. She continued to progress with physical therapy per protocol. She did develop some severe pain in the afternoon that was treated with medication. Postop day #3, the patient was doing much better. She has not been accepted at [facility]. Vital signs were stable. She was afebrile. Dressing was clean, dry and intact. She was neurovascularly intact. Calves were soft and nontender. Hemoglobin was 13.1. The patient continued to progress with physical therapy. She did do much better in the afternoon and was accepted at [facility]. For further review, please see the chart. Laboratory, x-ray data and discharge instructions as per chart.
== END 2016-08-13 12:45 | DRG 470 ==
LOC: ENRESERVDT → ENRESERVTM → C.ACU 07:15 → C.3E 08:00
PROVIDERS: ADMIT Orthopaedic Surgery; ATTEND Orthopaedic Surgery
PROC: 0SRB0JZ Replacement of Left Hip Joint with Synthetic Substitute, Open Approach (ICD-10-PCS; principal; 2016-08-10 09:30)
DX: M16.12 Unilateral primary osteoarthritis, left hip (principal); N17.9 Acute kidney failure, unspecified; I10 Essential (primary) hypertension; I48.91 Unspecified atrial fibrillation; F41.9 Anxiety disorder, unspecified; F32.9 Major depressive disorder, single episode, unspecified; E66.9 Obesity, unspecified; Z68.39 Body mass index [BMI] 39.0-39.9, adult; E03.9 Hypothyroidism, unspecified; I95.9 Hypotension, unspecified; Z98.1 Arthrodesis status; Z98.49 Cataract extraction status, unspecified eye; Z79.899 Other long term (current) drug therapy; Z79.01 Long term (current) use of anticoagulants; Z96.641 Presence of right artificial hip joint; Z96.652 Presence of left artificial knee joint

== ENCOUNTER 2016-08-26 08:34 | Inpatient (IN) | payer OTHER ==
[2016-08-25 16:16] VITALS: BMI 40.0
[2016-08-26] VITALS (7 sets, daily range): BP systolic 93–140; BP diastolic 60–93; PULSE 90–108; TEMP 36.4–36.8; O2SAT 97–99; Ht 157.5 cm; Wt 98.6 kg
[~2016-08-26] VITALS: Ht 157.5 cm; Wt 98.6 kg
[~2016-08-26 08:34] MED LIST changes: +ACET-1138 PO; -CLB100 PO; -FENTANYL CITRATE INJ 50 MCG/1 ML 2 ML VIAL ONE; -LACTATED RINGER'S 1000ML IV SCH; -MIDAZOLAM HCL 1 MG/ML 2ML VIAL ONE; +ONDA8TAB6 PO; -OXYCODONE HCL 10 MG TABCR (OXYCONTIN) PO SCH; +PATIENT'S HEIGHT AND/OR WEIGHT NEEDED SCH; +SNK PO
[2016-08-26] MEDS ORDERED: PROPOFOL IV EMULSION 10 MG/ML 20 ML VIAL IV ONE (09:08)
[2016-08-26] MEDS ORDERED: MIDAZOLAM HCL 1 MG/ML 2ML VIAL ONE (09:08)
[2016-08-26] MEDS ORDERED: LIDOCAINE HCL 2% 2 ML VIAL (20MG/ML) ONE (09:08)
[2016-08-26] MEDS ORDERED: VANCOMYCIN INJ 1,500 MG in SODIUM CHLORIDE 0.9% 500ML 500 ML IV SCH (09:15)
[2016-08-26] MEDS ORDERED: BACITRACIN 50000 UNIT VIAL ONE ×2 (10:06→12:05)
[2016-08-26] MEDS ORDERED: POVIDONE-IODINE OP SOLN 30 ML BTL ONE (10:06)
--- NOTE | 2016-08-26 10:42 | History and Physical ---
History & Physical Date Aug 26, 2016. 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 POST OP XRAYS WERE NL Past Medical/Surgical History Surgical Problems: (1) Post-operative state Additional History Endocrine Disorder: Yes Hypertension: Yes Allergies Coded Allergies: No Known Allergies (Verified , 08/26/16) Home Medications Scheduled Acetaminophen (Tylenol Extra Strength), 1,000 MG PO Q8 Apixaban (Eliquis), 5 MG PO BID Calcium/Vitamin D (Caltrate 600 Plus *), 1 TAB PO BID Celecoxib (CeleBREX), 200 MG PO QAM Cholecalciferol (Vitamin D), 1,000 INTER.UNIT PO QDL Lisinopril (Zestril), 5 MG PO QAM Metoprolol Succinate (Metoprolol Succinate ER), 1 TAB PO QPM Multiple Vitamin (Multivitamins), 1 TAB PO QDL Omeprazole (Prilosec), 20 MG PO QAM Senna (Senna Lax), 17.2 MG PO HS Sertraline (Zoloft), 100 MG PO QAM [Levothyroxine], 100 MG PO QAM Scheduled PRN Ondansetron Hcl (Zofran), 8 MG PO Q8 PRN for Nausea Oxycodone Hcl (Oxycodone Hcl), 1-2 CAP PO q4-6 hours PRN for Pain Physical Examination Skin: warm/dry, no rash Eyes: normal inspection, EOMI, sclerae normal ENT: normal ENT inspection, pharynx normal Head: normocephalic, atraumatic Neck: supple, no adenopathy, trachea midline Respiratory/Chest: lungs clear, normal breath sounds, no respiratory distress Cardiovascular: + systolic murmur Abdomen / GI: normal bowel sounds, non tender Extremities: + pertinent finding (SCAR CW SURGERY APPEARS CLEAN LEG HEAVY SHOT . 5CM PAIN W ROM ) Diagnosis PERIPROSTHETIC FX L HIP DJD R KNEE ASA Classification: ASA Class III Plan of Treatment ORIF POSSIBLE CMENETED PATRICIO
[2016-08-26] MEDS ORDERED: NURSING VERBAL MED ORDER ONE (10:45)
--- NOTE | 2016-08-26 10:50 | History & Physical Bridge Note ---
H&P Re-Evaluation Bridge Note: I have examined the patient, reviewed the History & Physical and in the interval since the performance of the History & Physical I have noted the following changes of clinical significance: No changes noted PLAN TO INJECT R KNEE
[2016-08-26] MEDS ORDERED: FENTANYL CITRATE INJ 50 MCG/1 ML 2 ML VIAL ONE ×3 (10:54→13:31)
[2016-08-26] MEDS ORDERED: LIDOCAINE HCL 1% 20 ML VIAL ONE (10:57)
[2016-08-26] MEDS ORDERED: METHYLPREDNISOLONE ACETATE 80 MG/ML VIAL ONE (10:58)
[2016-08-26] MEDS: TRANEXAMIC ACID INJ 1,000 MG in SODIUM CHLORIDE 0.9% 100ML 100 ML IV SCH ×2 (11:04→16:05)
[2016-08-26] MEDS ORDERED: ROCURONIUM BROMIDE 10 MG/ML 5 ML VIAL ONE (11:34)
[2016-08-26] MEDS ORDERED: ONDANSETRON INJ 2 MG/ML 2 ML VIAL ONE (11:34)
[2016-08-26] MEDS ORDERED: KETOROLAC TROMETHAMINE 30 MG/ML VIAL IV. PRN (12:30)
[2016-08-26] MEDS ORDERED: ONDANSETRON INJ 2 MG/ML 2 ML VIAL IV PRN ×2 (12:30→14:15)
[2016-08-26] MEDS ORDERED: LABETALOL HCL IV 5 MG/ML 20ML IV PRN (12:30)
[2016-08-26] MEDS ORDERED: ATROPINE SULFATE 0.1 MG/ML 5ML SYR IV PRN (12:30)
[2016-08-26] MEDS ORDERED: PHENYLEPHRINE 100MCG/ML 5ML SYR ONE (13:21)
--- NOTE | 2016-08-26 14:07 | DIAGNOSTIC IMAGING REPORT ---
LEFT HIP UNILATERAL 1 VIEW CLINICAL HISTORY: LT ANTERIOR TOTAL REVISION hip revision COMPARISON: None. DISCUSSION: Evidence for a total left hip revision. Circumferential wires are in position. An avulsion of the greater trochanter. There is no evidence for soft tissue swelling. IMPRESSION: Anatomic alignment status post total left hip revision Electronically signed by: Jose Pitt M.D. 08/26/2016 2:05 PM Dictated Date/Time: 08/26/2016 2:02 PM
--- NOTE | 2016-08-26 14:11 | [facility] Post Operative Brief Note ---
Immediate Operative Summary Operative Date Aug 26, 2016. Pre-Operative Diagnosis Periprosthetic Fracture Left Hip; Degenerative Joint Disease Right Knee Post-Operative Diagnosis Periprosthetic Fracture Left Hip; Degenerative Joint Disease Right Knee w morbid obesity bmi 40 Procedure(s) Performed Left Total Hip Revision with Wiring--Cemented and Intra-articular Injection Right Knee Surgeon Dr. Basil Romero Portable Power Tool Repairer Surgeon(s) CHRISTIAN Arias Estimated Blood Loss 200 ml Findings fx bone difficult to reduce trochanter was also fx obese Specimens A. Removed Hardware Left Hip (Femoral Head and Femoral Stem) Complication(s) None Disposition Recovery Room / PACU
[2016-08-26] MEDS ORDERED: ZOLPIDEM TARTRATE 5 MG TAB PO PRN (14:15)
[2016-08-26] MEDS ORDERED: METOCLOPRAMIDE HCL INJ 5 MG/ML 2 ML VIAL IV PRN (14:15)
[2016-08-26] MEDS ORDERED: SOD PHOSPHATE/SOD BIPHOSPHATE ENEMA 132 ML BTL PR PRN (14:15)
[2016-08-26] MEDS ORDERED: MoRPHine SULFATE 2 MG/ML CARP IV PRN (14:15)
[2016-08-26] MEDS ORDERED: ALUMINUM/MAGNESIUM/SIMETH (MAALOX MAX) 30 ML UDC PO PRN (14:15)
[2016-08-26] MEDS ORDERED: DiphenhydrAMINE HCL 50 MG/ML VIAL IV PRN (14:15)
[2016-08-26] MEDS ORDERED: MAGNESIUM HYDROXIDE SUSP 30 ML UDC PO PRN (14:15)
[2016-08-26] MEDS ORDERED: BISACODYL 10 MG SUPP PR PRN (14:15)
[2016-08-26] MEDS ORDERED: NEOSTIGMINE METHYLSULFATE 5 MG/5 ML SYR ONE (14:21)
[2016-08-26] MEDS ORDERED: GLYCOPYRROLATE INJ 0.2 MG/ML VIAL ONE (14:21)
[2016-08-26] MEDS: HYDROmorphone INJ 2 MG/ML SYR/VIAL IV PRN ×8 (14:42→15:17)
--- NOTE | 2016-08-26 15:01 | DIAGNOSTIC IMAGING REPORT ---
LEFT PELVIS/UNILATERAL HIP 1 VIEW CLINICAL HISTORY: IN PACU - A/P PELVIS and LATERAL HIP INCLUDING ALL OF IMPLANT COMPARISON STUDY: Pelvis 08/10/2016. FINDINGS: There are bilateral total hip arthroplasties. There are cerclage wires within the residual proximal left femur. There are skin nina and surgical drains within the left hip. There is a mildly displaced fracture at the left greater trochanter. IMPRESSION: 1. Interval placement of cerclage wires surrounding the proximal left femur. 2. Slightly displaced left greater trochanter fracture. Electronically signed by: Grant Sandoval M.D. 08/26/2016 3:00 PM Dictated Date/Time: 08/26/2016 2:58 PM
[2016-08-26] MEDS ORDERED: MEPERIDINE HCL 25 MG/ML CARP ONE (15:25)
--- NOTE | 2016-08-26 15:39 | Anesthesiology Progress Note ---
Anesthesia Post Op Note Date & Time Aug 26, 2016 at 15:39 Vital Signs Vital Signs Past 12 Hours Date Time Temp Pulse Resp B/P (MAP) Pulse Ox O2 Delivery O2 Flow Rate FiO2 08/26/16 15:35 101 19 113/76 100 Nasal Cannula 4 08/26/16 15:25 88 18 127/83 96 Nasal Cannula 4 08/26/16 15:15 85 16 116/67 96 Nasal Cannula 4 08/26/16 15:05 108 14 143/107 96 Nasal Cannula 4 08/26/16 14:55 96 19 144/96 96 Mask 10 08/26/16 14:50 91 18 143/106 96 Mask 10 08/26/16 14:45 85 14 154/84 100 Mask 10 08/26/16 14:35 79 17 146/94 96 Mask 10 08/26/16 14:33 36.2 93 18 142/109 100 Mask 10 08/26/16 09:23 36.5 99 20 140/93 98 Room Air Notes Mental Status: alert / awake / arousable, participated in evaluation Pt Amnestic to Procedure: Yes Nausea / Vomiting: adequately controlled Pain: adequately controlled Airway Patency, RR, SpO2: stable & adequate BP & HR: stable & adequate Hydration State: stable & adequate Anesthetic Complications: no major complications apparent
[2016-08-26] MEDS: OXYCODONE HCL IR 5 MG TAB (IMMEDIATE RELEASE) PO PRN ×2 (17:21→23:21)
[2016-08-26] MEDS: D5W AND 1/2NSS + 20MEQ KCL 1,000 ML IV SCH (17:40)
[2016-08-26] MEDS: CALCIUM 600MG + VIT D 400 IU TAB PO SCH (17:41)
[2016-08-26] MEDS: CEFAZOLIN IV 2,000 MG in DEXTROSE 5% 50ML 50 ML IV SCH (17:41)
--- NOTE | 2016-08-26 20:27 | OPERATIVE REPORT ---
DATE OF OPERATION: 08/26/2016 PREOPERATIVE DIAGNOSES: 1. Periprosthetic fracture status post left total hip. 2. Degenerative arthritis, right knee. 3. Morbid obesity, body mass index 42. POSTOPERATIVE DIAGNOSES: Same. PROCEDURES: 1. Left revision to cemented total hip. 2. Open reduction and internal fixation proximal femur fracture. 3. Intra-articular injection, right knee. SURGEON: Moo Romero MD [employer] ADMINISTRATOR: CHRISTIAN Arias ANESTHESIA: General. BLOOD LOSS: 200 mL. REPLACEMENT FLUIDS: 2200 mL crystalloid. DRAINS: Hemovac x2. CULTURES: None. COMPLICATIONS: None. COMPONENTS USED: [employer] cemented stem, size zero, standard offset with -3 head, cement Simplex T. NOTE: Pepper Holcomb was present and assisted throughout due to the complicated nature of this case. She helped with preparation and set up, first assisted throughout and personally closed the fascial, subcutaneous and skin layers and applied the postoperative dressing. DESCRIPTION OF THE PROCEDURE: Following satisfactory general, the patient was supine. The left leg was placed in traction. The right leg following a surgical time-out, this was prepared and injected with 80 mg of Depo-Medrol and 10 mL of lidocaine. The left leg was then placed in the traction device. The leg was prepared with ChloraPrep and draped sterilely. Following a surgical timeout, the old anterior approach was performed. The approach was difficult; a great deal of time and difficulty was encountered because of the patient's morbidly obese body habitus with a large fat layer, thickening and scarring from the previous surgery. Eventually, after additional time and effort the fascia was divided in line where it had previously been divided and the anterior interval was opened. There was very little bleeding, but exposure was extremely difficult. A capsulectomy was performed to allow better exposure. The fracture site was encountered. At first the stem was well fixed and the stem could not be moved. Eventually, the hip was dislocated and the stem was removed. It was very difficult to reduce the fracture to the stem because positioning the patient's leg was difficult because of inflammation, stiffness and her obese body habitus. The manipulating the stem, it was felt that at some point the greater trochanter had been fractured. The proximal femur was wired, but it was felt that the stem was not stable. The stem was removed. The cement restriction plug was placed after preparation for a cemented stem. A zero standard offset CPCS stem was cemented using Simplex T cement. A trial reduction with a -3 head using fluoroscopy showed spiritism of leg lengths. After irrigation, the -3 head was placed and the hip was reduced. The greater trochanter again was fractured, but was within the soft tissue sleeve. The patient's obese body habitus plus the anterior approach did not allow wiring of the trochanter. There were 3 wires placed around the lesser trochanter fragment and again the stem had been cemented. It was decided that an additional incision to try to wire this trochanter through a very large fatty hip would not have been indicated at this time where risk of infection and/or wound necrosis. The wound was irrigated copiously. A Betadine soak was performed for 3 minutes and 2 drains were placed. The fascia was closed with 1-0 Vicryl interrupted. The subcutaneous fat was closed in layers with 1 and 2-0 Vicryl. The skin was closed with surgical nina. A surface wound VAC was applied. The patient was returned to her bed in stable condition. I attest to the content of the Intraoperative Record and any orders documented therein. Any exceptions are noted below. ANNAD
[2016-08-26] MEDS: METOPROLOL SUCC 25MG EXT REL TAB PO SCH (21:00)
[2016-08-26] MEDS ORDERED: SENNA 8.6 MG TAB PO SCH (21:00)
[2016-08-26] MEDS: SENNA 8.6 MG TAB PO SCH (21:18)
[2016-08-26] MEDS: DOCUSATE SODIUM 100 MG CAP PO SCH (21:18)
[2016-08-26] MEDS: ACETAMINOPHEN 500 MG TAB PO SCH (21:19)
[2016-08-26] MEDS ORDERED: VANCOMYCIN INJ 1,500 MG in SODIUM CHLORIDE 0.9% 250ML 250 ML IV SCH (23:00)
[2016-08-27] VITALS (8 sets, daily range): BP systolic 97–114; BP diastolic 63–80; PULSE 80–101; TEMP 36.4–37.1; O2SAT 91–99
[2016-08-27] MEDS: CEFAZOLIN IV 2,000 MG in DEXTROSE 5% 50ML 50 ML IV SCH (02:37)
[2016-08-27] MEDS: D5W AND 1/2NSS + 20MEQ KCL 1,000 ML IV SCH ×2 (02:37→08:29)
[2016-08-27] MEDS: LEVOTHYROXINE 100 MCG TAB PO SCH (05:50)
[2016-08-27] MEDS: ACETAMINOPHEN 500 MG TAB PO SCH ×3 (05:50→21:32)
[2016-08-27] MEDS: OXYCODONE HCL IR 5 MG TAB (IMMEDIATE RELEASE) PO PRN ×4 (05:51→22:46)
[2016-08-27 06:15] LABS: BASO % 0.1 %; BASO ABS # 0.01 K/uL (0-0.2); COMPLETE YES; IG% 0.4 %; LYMPH % 9.1 %; LYMPH ABS # 1.13 K/uL (1.2-3.4); MEAN CELL VOLUME 94.8 fL (80-100); MEAN CORPUSCULAR HEMOGLOBIN 30.2 pg (25-34); MEAN CORPUSCULAR HGB CONC 31.8 g/dl (32-36); MEAN PLATELET VOLUME 8.5 fL (7.4-10.4); NEUT % 81.4 %; PLATELET COUNT 283 K/uL (130-400); RED BLOOD COUNT 3.48 M/uL (4.2-5.4); WHITE BLOOD COUNT 12.46 K/uL (4.8-10.8)
[2016-08-27 06:47] LABS: CALCIUM 7.7 mg/dl (8.5-10.1); CREATININE 0.84 mg/dl (0.60-1.20); POTASSIUM 4.2 mmol/L (3.5-5.1)
[2016-08-27] MEDS: CALCIUM 600MG + VIT D 400 IU TAB PO SCH ×2 (08:30→18:46)
[2016-08-27] MEDS: DOCUSATE SODIUM 100 MG CAP PO SCH ×2 (08:30→20:45)
[2016-08-27] MEDS: CeleBREX 200 MG CAP PO SCH (08:31)
[2016-08-27] MEDS: LISINOPRIL 5 MG TAB PO SCH (08:31)
[2016-08-27] MEDS: CHOLECALCIFEROL 1000 INTER.UNIT TAB PO SCH (08:32)
[2016-08-27] MEDS: SERTRALINE HCL 100 MG TAB PO SCH (08:32)
[2016-08-27] MEDS: PANTOprazole SOD 40 MG TAB PO SCH (08:32)
[2016-08-27] MEDS: MULTIVITAMIN TAB PO SCH (08:33)
--- NOTE | 2016-08-27 08:45 | Anesthesiology Progress Note ---
Anesthesia Post Op Note Date & Time Aug 27, 2016 at 08:44 Vital Signs Pain Intensity: 4.0 Vital Signs Past 12 Hours Date Time Temp Pulse Resp B/P (MAP) Pulse Ox O2 Delivery O2 Flow Rate FiO2 08/27/16 07:33 Room Air 08/27/16 07:30 36.4 80 16 113/75 (88) 94 Room Air 08/27/16 02:43 36.5 94 18 114/71 (85) 98 Nasal Cannula 2.0 08/27/16 00:05 36.8 95 18 99/63 (75) 96 Nasal Cannula 2.0 08/26/16 23:20 Nasal Cannula 2.0 08/26/16 21:13 103/69 (80) Notes Mental Status: alert / awake / arousable, participated in evaluation Pt Amnestic to Procedure: Yes Nausea / Vomiting: adequately controlled Pain: adequately controlled Airway Patency, RR, SpO2: stable & adequate BP & HR: stable & adequate Hydration State: stable & adequate Neuraxial Anesthesia: sensory block resolved Anesthetic Complications: no major complications apparent
--- NOTE | 2016-08-27 09:46 | Orthopedic Progress Note ---
Orthopedic Progress Note Date of Service Aug 27, 2016. Subjective Post OP Day: 1 (L REVISION PATRICIO) Reports: pain controlled w PO medications, Denies: chest pain, SOB, nausea / vomiting, light headedness Objective calves soft nontender, N/V intact, hip located, dressing C/D/I, A&O x3, toes mobile, hemovac drainage (50 LAST SHIFT ) Date Time Temp Pulse Resp B/P (MAP) Pulse Ox O2 Delivery O2 Flow Rate FiO2 08/27/16 07:33 Room Air 08/27/16 07:30 36.4 80 16 113/75 (88) 94 Room Air 08/27/16 02:43 36.5 94 18 114/71 (85) 98 Nasal Cannula 2.0 08/27/16 00:05 36.8 95 18 99/63 (75) 96 Nasal Cannula 2.0 08/26/16 23:20 Nasal Cannula 2.0 08/26/16 21:13 103/69 (80) 08/26/16 19:07 36.7 100 16 94/60 (71) 98 Nasal Cannula 3.5 08/26/16 18:05 36.8 108 15 93/65 (74) 99 Nasal Cannula 3.5 08/26/16 17:05 36.4 90 16 112/73 (86) 97 Nasal Cannula 4.0 08/26/16 16:35 36.6 104 17 95/65 (75) 98 Nasal Cannula 4.0 08/26/16 16:05 99 Nasal Cannula 4.0 08/26/16 16:05 36.6 101 17 130/83 (99) 99 Nasal Cannula 4.0 08/26/16 16:05 99 Nasal Cannula 4.0 08/26/16 15:48 107 12 100 08/26/16 15:48 112 12 08/26/16 15:46 123/68 08/26/16 15:45 36.6 102 15 123/68 100 Nasal Cannula 4 08/26/16 15:43 117 21 08/26/16 15:43 92 21 89 08/26/16 15:41 124/89 08/26/16 15:38 110 13 100 08/26/16 15:38 106 13 08/26/16 15:36 113/76 08/26/16 15:35 101 19 113/76 100 Nasal Cannula 4 6/15/17 15:33 112 19 15/17 15:33 97 19 100 15/17 15:31 119/89 15/17 15:28 109 14 127/83 97 15/17 15:28 122 14 15/17 15:25 88 18 127/83 96 Nasal Cannula 4 1517 15:23 90 25 15/17 15:23 25 15/17 15:22 108/78 15/17 15:18 107 17 116/67 15/17 15:18 17 15/17 15:15 85 16 116/67 96 Nasal Cannula 4 15/17 15:13 95 19 100 15/17 15:13 98 19 15/17 15:12 120/101 15/17 15:08 99 17 15/17 15:08 92 17 97 15 15:06 143/107 1517 15:05 108 14 143/107 96 Nasal Cannula 4 08/26/16 15:03 89 20 15 15:03 110 20 87 15/17 15:02 146/93 15/17 14:58 92 17 144/96 15/17 14:58 17 08/26/16 14:55 96 19 144/96 96 Mask 10 15/ 14:53 19 15/17 14:53 99 19 143/106 15/17 14:50 91 18 143/106 96 Mask 10 15/ 14:48 90 17 15/ 14:48 82 17 15/17 14:47 154/84 15/17 14:45 85 14 154/84 100 Mask 10 15/17 14:43 115 26 15/17 14:43 84 26 15/17 14:41 151/99 15/17 14:39 146/94 15/17 14:38 93 14 100 15/17 14:38 108 14 15/17 14:37 66/55 15/17 14:35 79 17 146/94 96 Mask 10 15/17 14:34 142/104 15/17 14:33 16 15/17 14:33 36.2 93 18 142/109 100 Mask 10 08/26/16 14:33 80 16 Laboratory Results 24 Hours: Test 08/27/16 05:49 White Blood Count 12.46 K/uL Red Blood Count 3.48 M/uL Hemoglobin 10.5 g/dL Hematocrit 33.0 % Mean Corpuscular Volume 94.8 fL Mean Corpuscular Hemoglobin 30.2 pg Mean Corpuscular Hemoglobin Concent 31.8 g/dl Platelet Count 283 K/uL Mean Platelet Volume 8.5 fL Neutrophils (%) (Auto) 81.4 % Lymphocytes (%) (Auto) 9.1 % Monocytes (%) (Auto) 9.0 % Eosinophils (%) (Auto) 0.0 % Basophils (%) (Auto) 0.1 % Neutrophils # (Auto) 10.15 K/uL Lymphocytes # (Auto) 1.13 K/uL Monocytes # (Auto) 1.12 K/uL Eosinophils # (Auto) 0.00 K/uL Basophils # (Auto) 0.01 K/uL Assessment & Plan Assessment: POD 1 REVISION PATRICIO TO CEMENT FOR FX FX GREATER TROCH MORBID OBESITY INCREASED INF RISK Inhouse Planning Pain Management: Oxycontin, PO Tylenol, Oxy IR DVT Prophylaxis: TEDs, SCDs, other (ELIQUIS) Discharge Planning Discharge Planning: rehab hospital (PT MULTIPLE COMORBODITIES WOULD BENEFIT FROM REHAB MAY WBAT NO HIP EXERCISES DUE TO TROCHFX )
--- NOTE | 2016-08-27 10:20 | Anesthesiology Progress Note ---
Anesthesia Post Op Note Date & Time Aug 27, 2016 at 10:20 Vital Signs Pain Intensity: 8.0 Vital Signs Past 12 Hours Date Time Temp Pulse Resp B/P (MAP) Pulse Ox O2 Delivery O2 Flow Rate FiO2 08/27/16 07:33 Room Air 08/27/16 07:30 36.4 80 16 113/75 (88) 94 Room Air 08/27/16 02:43 36.5 94 18 114/71 (85) 98 Nasal Cannula 2.0 08/27/16 00:05 36.8 95 18 99/63 (75) 96 Nasal Cannula 2.0 08/26/16 23:20 Nasal Cannula 2.0 Notes Mental Status: alert / awake / arousable, participated in evaluation Pt Amnestic to Procedure: Yes Nausea / Vomiting: adequately controlled Pain: adequately controlled Airway Patency, RR, SpO2: stable & adequate BP & HR: stable & adequate Hydration State: stable & adequate Anesthetic Complications: no major complications apparent
[2016-08-27] MEDS: TRAMADOL HCL 50 MG TAB PO PRN (10:54)
[2016-08-27] MEDS: METOPROLOL SUCC 25MG EXT REL TAB PO SCH (20:43)
[2016-08-27] MEDS: APIXABAN 2.5 MG TAB PO SCH (20:46)
[2016-08-27] MEDS: SENNA 8.6 MG TAB PO SCH (20:46)
[2016-08-28] MEDS: TRAMADOL HCL 50 MG TAB PO PRN ×2 (01:43→12:33)
[2016-08-28] MEDS: OXYCODONE HCL IR 5 MG TAB (IMMEDIATE RELEASE) PO PRN ×3 (03:24→14:01)
[2016-08-28] MEDS: ACETAMINOPHEN 500 MG TAB PO SCH ×2 (05:42→14:02)
[2016-08-28] MEDS: LEVOTHYROXINE 100 MCG TAB PO SCH (05:42)
[2016-08-28 08:00] VITALS: BP 113/75; PULSE 54; TEMP 36.5; O2SAT 97
[2016-08-28] MEDS: CALCIUM 600MG + VIT D 400 IU TAB PO SCH (09:21)
[2016-08-28] MEDS: APIXABAN 2.5 MG TAB PO SCH (09:21)
[2016-08-28] MEDS: MULTIVITAMIN TAB PO SCH (09:22)
[2016-08-28] MEDS: PANTOprazole SOD 40 MG TAB PO SCH (09:22)
[2016-08-28] MEDS: CeleBREX 200 MG CAP PO SCH (09:22)
[2016-08-28] MEDS: LISINOPRIL 5 MG TAB PO SCH (09:23)
[2016-08-28] MEDS: CHOLECALCIFEROL 1000 INTER.UNIT TAB PO SCH (09:23)
[2016-08-28] MEDS: DOCUSATE SODIUM 100 MG CAP PO SCH (09:23)
--- NOTE | 2016-08-28 09:29 | Orthopedic Progress Note ---
Orthopedic Progress Note Date of Service Aug 28, 2016. Subjective Post OP Day: 2 Reports: feeling well, pain controlled w PO medications, Denies: complaints, chest pain, SOB, nausea / vomiting, light headedness, calf pain Objective hip located, capillary refill less than 2 sec., incision C/D/I, A&O x3, toes mobile Date Time Temp Pulse Resp B/P (MAP) Pulse Ox O2 Delivery O2 Flow Rate FiO2 08/28/16 08:00 36.5 54 20 113/75 (88) 97 Room Air 08/28/16 07:33 Room Air 08/28/16 00:00 Room Air 08/27/16 23:25 36.6 99 18 109/76 (87) 99 Room Air 08/27/16 20:38 101 101/68 (79) 08/27/16 16:00 Room Air 08/27/16 15:20 36.7 99 18 97/64 (75) 94 Room Air 08/27/16 13:05 95 97 08/27/16 11:05 37.1 80 18 100/64 (76) 91 Room Air Assessment & Plan Assessment: POD 2 REVISION PATRICIO TO CEMENT FOR FX FX GREATER TROCH MORBID OBESITY INCREASED INF RISK Plan: Patient is scheduled to go to [facility] today. She will be WBAT with no active hip exercises. Eliquis for DVT prophylaxis Inhouse Planning Pain Management: Oxycontin, PO Tylenol, Oxy IR DVT Prophylaxis: TEDs, SCDs, other (ELIQUIS) Discharge Planning Discharge Planning: rehab hospital (PT MULTIPLE COMORBODITIES WOULD BENEFIT FROM REHAB MAY WBAT NO HIP EXERCISES DUE TO TROCHFX )
[2016-08-28] MEDS: SERTRALINE HCL 100 MG TAB PO SCH (09:56)
[2016-08-28 10:48] VITALS: BP 165/93; PULSE 56
[2016-08-28 10:57] VITALS: O2SAT 97
[2016-08-28 12:06] VITALS: BP 111/71; PULSE 59; TEMP 36.3; O2SAT 97
--- NOTE | 2016-08-28 12:25 | DIAGNOSTIC IMAGING REPORT ---
LEFT HIP UNILATERAL 2 VIEWS CLINICAL HISTORY: Increased Left hip pain S/P revision PATRICIO COMPARISON: 08/26/2016 DISCUSSION: Similar appearance to left hip. Evidence for a total left hip revision. Mild moderately displaced fracture greater trochanter unchanged. No evidence for acetabular protrusion. There is no evidence for soft tissue swelling. IMPRESSION: Postoperative change considered stable. No acute or interval process. Electronically signed by: Jose Pitt M.D. 08/28/2016 12:24 PM Dictated Date/Time: 08/28/2016 12:22 PM
[2016-08-28] MEDS ORDERED: OXYC1CAP5 PO (12:38)
[2016-08-28] MEDS ORDERED: MORP-157 PO (12:38)
--- NOTE | 2016-08-28 12:47 | Discharge Instructions ---
Discharge Instructions Date of Service Aug 28, 2016. Admission Reason for Admission: Left Hip Osteoarthritis Discharge Discharge Diagnosis / Problem: S/P Revision Left PATRICIO with greater trochanteric fracture. Discharge Goals Goal(s): Decrease discomfort, Improve function Activity Recommendations Activity Limitations: per Instructions/Follow-up section . Instructions / Follow-Up Instructions / Follow-Up ACTIVITY RECOMMENDATIONS: SELF CARE INSTRUCTIONS AFTER TOTAL HIP REPLACEMENT Until the incision and soft tissues around your hip have healed, there is a possibility that the hip prosthesis could dislocate. A. Observe the following precautions to prevent dislocation: 1. Don't bend your hip greater than 90 degrees. 2. Avoid crossing your legs or ankles while standing or lying. 3. Sit with your feet placed 6 inches apart. 4. When sitting, keep your knees below your hips. Sit on a firm surface, avoid deep, soft chairs and couches. Use an elevated toilet seat in the bathroom. 5. Don't bend over at the waist. Use a long handled shoehorn and a sock aid to help you put on your shoes and socks. A investigations consultant can help you cotton picker operator objects that are too high or too low to reach. 6. Keep car riding to a minimum for at least one month after surgery. B. Your balance may be shaky for a while. Use crutches or a walker until directed by your doctor. C. Use hand rails when walking on stairs. D. Wear low heeled shoes with non-slip soles. E. Be sure that your floors are free of things that could trip you - throw rugs , electrical cords, small objects. Avoid wet and waxed floors, especially with crutches and canes. F. Try to walk several times a day with rest periods between. G. Continue with all the exercises taught to you in the hospital. Again, make walking a part of your daily routine. SPECIAL CARE INSTRUCTIONS: VERY IMPORTANT TO READ AND REVIEW A. You may still be at risk for phlebitis and blood clots. 1. Wear surgical stockings (ADAN hose) for 2 weeks after surgery to improve circulation and reduce swelling. 2. Take Aspirin 81mg twice daily for 4 weeks or as directed by your doctor. This is your blood thinner. 3. High risk patients may be prescribed a stronger blood thinner if necessary. 4. If you are on Coumadin normally, your family doctor/dispatcher radio should monitor your blood work. Expect a phone call the day of or the day after bloodwork is drawn to adjust your dosage. B. You must take antibiotics before having dental work, bladder, bowel and other surgery. Your doctor will provide you with a permanent card to carry describing precautions. C. Call [facility] if you have a fever, redness or swelling around the incision, cloudy drainage from incision, or sudden increase in pain in your hip, not relieved by your regular pain medication. D. Please call the office at if you have any concerns or questions about your operation or recovery. * YOU MAY SHOWER, NO TUB BATHS UNTIL CLEARED BY YOUR DOCTOR. * WEAR ADAN HOSE 20 HOURS PER DAY FOR 2 WEEKS. * YOU SHOULD USE A WALKER OR CRUTCHES FOR 2-4 WEEKS. THIS WILL HELP PREVENT STRAIN ON YOUR HIP MUSCLE AND ALLOW IT TO HEAL PROPERLY. YOU MAY WEAN TO A CANE TOLERATED. PATIENT IS TO WEIGHTBEAR TOLERATED WITH WALKING BEING THE ONLY EXERCISE. NO ACTIVE HIP EXERCISES ARE PERMITTED. * YOU MAY HAVE A LARGE, BAND-IVY LIKE DRESSING (SILVERON). THIS WILL REMAIN ON YOUR INCISION FOR 7 DAYS, THEN CAN BE REMOVED. IF INCISION IS LEAKING THROUGH DRESSING, PLEASE CALL THE OFFICE . FOLLOW UP VISIT: If appointment is not already scheduled: Please call [facility] to make a follow-up appointment for 2 weeks after your surgery at . Current Hospital Diet Patient's current hospital diet: Regular Diet Discharge Diet Recommended Diet: Regular Diet Procedures Procedures Performed: Left Total Hip Revision with Wiring--Cemented and Intra-articular Injection Right Knee Pending Studies Studies pending at discharge: no Medical Emergencies . Who to Call and When: Medical Emergencies: If at any time you feel your situation is an emergency, please call 911 immediately. . Non-Emergent Contact Non-Emergency issues call your: Surgeon Call Non-Emergent contact if: temperature is above 101.5, your pain is worsening, wound has increased drainage, wound has increased redness . "Provider Documentation" section prepared by John Woodard. . VTE Core Measure Inpt VTE Proph given/why not?: Other Anticoagulation (Eliquis) [place] Drug Monitoring Program Search Results: patient reviewed within database, no issues identified
[2016-08-28 13:30] VITALS: BP 111/71; PULSE 59; TEMP 36.3; O2SAT 97
--- NOTE | 2016-09-06 10:34 | DISCHARGE SUMMARY ---
DISCHARGE DIAGNOSIS: Periprosthetic left hip fracture. SECONDARY DIAGNOSIS: Morbid obesity. CONSULTS: None. COMPLICATIONS: None. PROCEDURE: The patient underwent ORIF with revision left total hip arthroplasty on 08/26/2016. BRIEF HISTORY: Please see previously dictated history and physical. HOSPITAL SUMMARY: The patient was admitted on the above day for the above procedure. Procedure went without complication. Postop day 1, the patient was feeling well without complaints. She denied chest pain or shortness of breath. Vital signs were stable. She was afebrile. Dressing was clean, dry and intact. She was neurovascularly intact. Calves were soft and nontender. Hip was located. Hemovac drained 50 mL. Hemoglobin was 10.5. The patient began physical therapy per protocol and was recommended that she do inpatient rehabilitation. Postop day 2, the patient was doing well. She denied chest pain or shortness of breath. Vital signs were stable. She was afebrile. Dressing was clean, dry and intact. She was neurovascularly intact. Calves were soft and nontender. The patient continued to progress with therapy. She was discharged to rehab later that day in stable condition. For further review please see the chart. Lab, x-ray data and discharge instructions as per chart.
== END 2016-08-28 15:05 | DRG 467 ==
LOC: C.ACU 08:34 → C.3E 14:18 → ENRESERV 15:22
PROVIDERS: ADMIT Orthopaedic Surgery; ATTEND Orthopaedic Surgery
PROC: 0SWS0JZ Revision of Synthetic Substitute in Left Hip Joint, Femoral Surface, Open Approach (ICD-10-PCS; principal; 2016-08-26 10:30)
DX: M97.9XXA Periprosthetic fracture around unspecified internal prosthetic joint, initial encounter (principal); Z68.41 Body mass index [BMI] 40.0-44.9, adult; I10 Essential (primary) hypertension; E66.01 Morbid (severe) obesity due to excess calories